=== PATIENT | female | born 1965 | race Caucasian/White ===

== ENCOUNTER → 2017-09-14 | Outpatient (CLI) | payer MEDICARE, MEDICAID | END | disposition home or self-care (01) | LOC: KCIC MRI 13:06 | DX: M47.897 Other spondylosis, lumbosacral region (principal); R60.0 Localized edema | CPT/HCPCS: 72148 ==

== ENCOUNTER → 2017-10-06 | Outpatient (CLI) | payer MEDICARE, MEDICAID ==
[~2017-10-06] MED LIST: IOHEXOL 180 MG/ML 10 ML VIAL.; methylPREDNISolone ACETATE 40 MG/ML VIAL.; methylPREDNISolone ACETATE 80 MG/ML VIAL.
== END | disposition home or self-care (01) ==
LOC: PNCL 09:00
DX: M51.16 Intervertebral disc disorders with radiculopathy, lumbar region (principal); F17.210 Nicotine dependence, cigarettes, uncomplicated; Z87.442 Personal history of urinary calculi; I10 Essential (primary) hypertension; K21.9 Gastro-esophageal reflux disease without esophagitis; Z98.890 Other specified postprocedural states; Z88.8 Allergy status to other drugs, medicaments and biological substances; Z79.899 Other long term (current) drug therapy; Z82.49 Family history of ischemic heart disease and other diseases of the circulatory system
CPT/HCPCS: 62323; J1030; J1040; Q9965

== ENCOUNTER → 2017-10-20 | Outpatient (CLI) | payer MEDICARE, MEDICAID | LOC: PNCL 09:31 | DX: M51.16 Intervertebral disc disorders with radiculopathy, lumbar region (principal) | CPT/HCPCS: 62323; J1030; J1040; Q9965 ==

== ENCOUNTER → 2017-11-03 | Outpatient (CLI) | payer MEDICARE, MEDICAID | LOC: PNCL 09:05 | DX: M51.16 Intervertebral disc disorders with radiculopathy, lumbar region (principal) | CPT/HCPCS: 62323; J1030; J1040; Q9965 ==

== ENCOUNTER → 2018-01-11 | Outpatient (CLI) | payer MEDICARE, MEDICAID | END | disposition home or self-care (01) | LOC: KCIC MAMMO 16:04 | DX: Z12.31 Encounter for screening mammogram for malignant neoplasm of breast (principal); I10 Essential (primary) hypertension; K21.9 Gastro-esophageal reflux disease without esophagitis | CPT/HCPCS: 77063; 77067 ==

== ENCOUNTER → 2019-06-03 | Outpatient (CLI) | payer MEDICARE, MEDICAID ==
[2015-09-19 05:26] VITALS: BP 164/88
[~2019-06-03] MED LIST changes: +BUPR200T2 PO; +DESV100T PO; +GABA-585 PO; -IOHEXOL 180 MG/ML 10 ML VIAL.; +MULT1TAB52 PO; +OXYB5TAB10 PO; +RANI150C PO; +TRIA1CAP3 PO; -methylPREDNISolone ACETATE 40 MG/ML VIAL.; -methylPREDNISolone ACETATE 80 MG/ML VIAL.
--- NOTE | 2019-06-03 17:07 | KCIC ---
MRI of the lumbar spine without contrast 06/03/2019 CLINICAL HISTORY: Low back pain with severe right leg pain. TECHNIQUE: Unenhanced T1-weighted and T2-weighted sagittal and axial and inversion recovery sagittal images of the lumbar spine were obtained. FINDINGS: Comparison study is dated 09/14/2017. Very mild S-shaped curvature of the thoracolumbar spine is seen. Degenerative signal changes are seen involving all of the disks of the lumbar spine. Degenerative signal changes are seen within the marrow surrounding these discs. The conus medullaris is normal morphology, position, and signal characteristics. A septated high signal intensity lesion is seen on the T2-weighted images in the right pelvis which measures at least 7 cm in greatest diameter. It is incompletely evaluated on this study but likely represents a complex ovarian cyst. It does not appear significantly changed since the previous examination. An oval-shaped well-defined heterogeneous mass lesion which appears to be within the thecal sac is seen extending from the L4-5 level inferiorly. This measures 1.8 x 1.5 x 1.1 cm in craniocaudal, transverse and AP dimensions. This was not seen on previous examination. 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 This occupies the majority of the thecal sac extending from L4-5 to the superior L5 level displacing the nerve roots of the cauda equina, laterally and posteriorly. This mass causes severe central spinal canal stenosis. No additional mass lesion is seen. The changes of degenerative disc disease are seen throughout the lumbar spine. These consist of minimal to mild generalized disc bulges, degenerative changes involving the facet joints and mild to moderate ligamentum flavum hypertrophy. These findings do not result in areas of significant central spinal canal or neural foraminal stenosis. IMPRESSION: 1.8 cm oval-shaped mass is seen within the thecal sac at the L4-5 level which occupies the majority of the thecal sac at L4-5 extending inferiorly resulting in severe central spinal canal stenosis. 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 This could be further evaluated with postcontrast MR imaging if clinically warranted. Electronically signed by: Seven Hogan MD (06/03/2019 5:04 PM) [email or web address]
== END | disposition home or self-care (01) ==
LOC: KCIC MRI 14:25
PROVIDERS: ATTEND Family Medicine
DX: M51.16 Intervertebral disc disorders with radiculopathy, lumbar region (principal); R22.2 Localized swelling, mass and lump, trunk
CPT/HCPCS: 72148

== ENCOUNTER → 2019-06-29 | Outpatient (CLI) | payer MEDICARE, MEDICAID ==
[2015-09-19 05:26] VITALS: BP 164/88
[~2019-06-29] MED LIST changes: +FAMO20TA5 PO; +GADOTERATE 7.5 MMOL/15ML VIAL. IVP ONE; +OXYB10TA2 PO
--- NOTE | 2019-06-29 13:57 | RAD ---
MRI of the lumbar spine without and with contrast 06/29/2019 CLINICAL HISTORY: Mass seen within the central spinal canal of the lower lumbar spine on a recent MRI. Postcontrast imaging was recommended for further evaluation. TECHNIQUE: Unenhanced T1-weighted and T2-weighted sagittal and axial and inversion recovery sagittal images of the lumbar spine were obtained. After the intravenous administration of 20 cc of DOTAREM, enhanced T1-weighted sagittal and axial images of the lumbar spine were obtained. FINDINGS: Comparison study is dated 06/03/2019. Very mild S-shaped curvature of the thoracolumbar spine is seen. Degenerative signal changes are seen involving all of the disks of the lumbar spine. Degenerative signal changes are seen within the marrow surrounding these discs. The conus medullaris is normal morphology, position, and signal characteristics. An oval-shaped well-defined mass is seen within the thecal sac at the L4-5 level extending inferiorly. This measures 1.8 x 1.6 x 1.1 cm in craniocaudal, transverse and AP dimensions. This corresponds to the abnormality seen on the patient's recent MRI. It demonstrates enhancement with slightly irregular nonenhancing center. Its MRI appearance is consistent with schwannoma/neurofibroma. No additional area of abnormal contrast enhancement is seen. This mass results in severe central spinal canal stenosis at the L4-5 level extending to the mid L5 level. The changes of degenerative disc disease are again seen throughout the lumbar disc spaces consisting of minimal to mild generalized disc bulges, degenerative changes involving the facet joints and mild to moderate ligament flavum hypertrophy. These findings do not result in additional areas of significant central spinal canal or neural foraminal stenosis. A septated high signal intensity mass is seen on the T2-weighted images within the right pelvis near the posterior midline which is incompletely evaluated on this study. This may represent a complex ovarian cyst. It is unchanged. IMPRESSION: 1.8 cm enhancing intradural, extramedullary oval-shaped mass is seen at L4-5 level extending inferiorly. 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 This results in severe central spinal canal stenosis. No additional area of abnormal contrast enhancement is seen. Electronically signed by: Seven Hogan MD (06/29/2019 1:54 PM) [facility]
== END | disposition home or self-care (01) ==
LOC: MRI 10:09
PROVIDERS: ATTEND Neurological Surgery
DX: M51.36 Other intervertebral disc degeneration, lumbar region (principal); M48.061 Spinal stenosis, lumbar region without neurogenic claudication; G95.89 Other specified diseases of spinal cord; I10 Essential (primary) hypertension; F17.200 Nicotine dependence, unspecified, uncomplicated
CPT/HCPCS: 72158; A9575

== ENCOUNTER → 2019-07-04 | Outpatient (CLI) | payer MEDICARE, MEDICAID ==
[2015-09-19 05:26] VITALS: BP 164/88
[~2019-07-04] MED LIST changes: -GADOTERATE 7.5 MMOL/15ML VIAL. IVP ONE
[2019-07-04 15:35] LABS: BASO # 0.1 x10^3/uL (0.0-0.2); BASO % 1 % (0-3); EOS % 1 % (0-3); HEMATOCRIT 39.4 % (36.0-47.0); HEMOGLOBIN 13.4 g/dL (12.0-15.5); LYMPH # 1.8 x10^3/uL (1.0-4.8); LYMPH % 26 % (24-48); MEAN CORPUSCULAR HEMOGLOBIN 30 pg (25-35); MEAN CORPUSCULAR HGB CONC 34 g/dL (31-37); MEAN CORPUSCULAR VOLUME 88 fL (79-100); MONO # 0.7 x10^3/uL (0.0-1.1); MONO % 11 % (0-9); NEUT # 4.2 x10^3/uL (1.8-7.7); NEUT % 62 % (31-73); PLATELET COUNT 293 x10^3/uL (140-400); RED CELL DISTRIBUTION WIDTH 14.8 % (11.5-14.5); WHITE BLOOD COUNT 6.8 x10^3/uL (4.0-11.0)
--- NOTE | 2019-07-04 15:41 | EKG ---
[facility] [address] [place] [address] Test Date: 2019-07-04 Test Time: 15:23:49 Pat Name: LAUREN FORDE Department: Room: Gender: F Assistant Toddler Teacher: : 1965 Requested By: MILENA PRINGLE Order Number: [id number] Reading MD: Anjel De Measurements Intervals [place] Rate: 75 P: 267 TX: 154 QRS: -11 QRSD: 84 T: 16 QT: 378 QTc: 425 Interpretive Statements SINUS RHYTHM LEFTWARD AXIS MILD NONSPECIFIC ST-T WAVE CHANGES. Electronically Signed On 07-05-2019 13:13:05 [employer] WORK[employer] by Anjel De
[2019-07-04 15:48] LABS: PROTHROMBIN TIME PATIENT 13.2 SEC (11.7-14.0)
[2019-07-04 16:09] LABS: ALBUMIN 3.7 g/dL (3.4-5.0); CALCIUM 9.2 mg/dL (8.5-10.1); CREATININE 0.8 mg/dL (0.6-1.0); GFR 74.5; POTASSIUM 3.8 mmol/L (3.5-5.1); TOTAL BILIRUBIN 0.3 mg/dL (0.2-1.0); TOTAL PROTEIN 7.3 g/dL (6.4-8.2)
== END | disposition home or self-care (01) ==
LOC: SURGPAT 13:42
PROVIDERS: ATTEND Neurological Surgery
DX: Z01.818 Encounter for other preprocedural examination (principal); D36.17 Benign neoplasm of peripheral nerves and autonomic nervous system of trunk, unspecified; Z88.8 Allergy status to other drugs, medicaments and biological substances
CPT/HCPCS: 36415; 80053; 85025; 85610; 85730; 87641; 93005

== ENCOUNTER 2019-07-13 09:27 | Inpatient (IN) | payer MEDICARE, MEDICAID ==
--- NOTE | 2019-07-12 23:21 | HP ---
ADMIT DATE: 07/13/2019. DATE OF SURGERY: 07/13/2019 HISTORY OF PRESENT ILLNESS: The patient is a pleasant 54-year-old who has difficulty with low back pain, left hip and left lateral thigh pain. This started about 1-1/2 years ago. Three months ago, it became severe. She has pain down to her left ankle and she rates it as a 9/10. Her back pain, she rates as a 6/10. Activity increases her pain. She takes Advil and Tylenol. She has had 3 epidural steroid injections without help. When asked about bowel and bladder function, she did report difficulty with urgency of urine. PAST MEDICAL HISTORY: Hypertension, kidney stones and psychiatric care. PAST SURGICAL HISTORY: Kidney stone removal, ectopic , and tubal ligation. FAMILY HISTORY: Cancer and hypertension. SOCIAL HISTORY: She is retired. . Exercises weekly. Denies substance abuse. Current smoker. Drinks 1-2 times per year. Drinks soda. ALLERGIES: ALLERGY TO KEFLEX. CURRENT MEDICATIONS: Bupropion, Pristiq, triamterene/hydrochlorothiazide, oxybutynin, famotidine and a multivitamin. REVIEW OF SYSTEMS: A 12-point review of systems was obtained and is noncontributory except for that mentioned above. PHYSICAL EXAMINATION: NEUROSURGERY EXAMINATION: GENERAL APPEARANCE: Alert, pleasant, no acute distress. HEAD: Normocephalic, atraumatic. SKIN: Warm and dry. MUSCULOSKELETAL: Lumbar paraspinal muscle bulk is normal, restricted range of motion of the lumbar spine, [id number] tenderness of low lumbar spine with palpation, normal range of motion of the lower extremities bilaterally. EXTREMITIES: No clubbing, cyanosis or edema. NEUROLOGIC: Alert and oriented x 3, normal recent and remote memory. Strength 5/5 in bilateral lower extremities, sensory was intact to light touch in bilateral lower extremities, reflexes were present and symmetric in lower extremities bilaterally, negative straight leg raising bilaterally, normal gait. IMAGING: I reviewed a lumbar MRI scan. I reviewed the study with and without contrast. On that study, there is an intradural extramedullary mass at L4-L5, which occupies the majority of the canal. There is also an appearance of neurofibroma, meningioma. ASSESSMENT/ PLAN: She has an intradural mass at L4-L5 with lumbar stenosis. She should undergo a surgery to remove the mass. I did discuss the risks of the operation with her including injury to the nerves, controlling bowel and bladder function. I spoke about the possibility of weakness to her lower extremities. I outlined the surgery in detail as well as the expected post op course. She understands. She would like to go ahead. We will make the arrangements. MILENA PRINGLE MD DR: RUDDY/boni JOB#: [id number] / [id number] YEMI
[~2019-07-13] VITALS: Ht 162.6 cm; Wt 102.5 kg
[~2019-07-13 09:27] MED LIST changes: +BACITRACIN 50,000 UNIT in IV NORMAL SALINE 1000ML BAG 1,000 ML IRR ONE; +BUPIVACAINE-EPI 0.5%-1:200000 MPF 30 ML VIAL. INJ ONE; +GELATIN SPONGE SIZE 100. ONE; +IV RINGERS,LACTATED 1000ML 1,000 ML IV SCH; +KETOROLAC 60 MG/2 ML VIAL. ONE; +LIDOCAINE 1% PF 2 ML VIAL. ID PRN; +ONDANSETRON PF 4 MG/2 ML VIAL. IV PRN; +PROCHLORPERAZINE 10 MG/2 ML VIAL. IV PRN; +THROMBIN TOPICAL 20,000 UNIT SPRAY.SYRN KIT TP ONE; +VANCOMYCIN 1GM IVPB FOR OMNI 250 ML IV PRN; +fentaNYL PF VIAL 100 MCG/2 ML VIAL IV PRN
[2019-07-13] MEDS ORDERED: ROCURONIUM 50 MG/5 ML VIAL. ONE (10:45)
[2019-07-13] MEDS ORDERED: PROPOFOL 20 ML IV ONE ×2 (10:45→18:47)
[2019-07-13] MEDS ORDERED: PROPOFOL 50 ML IV ONE ×3 (10:45→15:44)
[2019-07-13] MEDS ORDERED: ONDANSETRON PF 4 MG/2 ML VIAL. ONE (10:45)
[2019-07-13] MEDS ORDERED: DEXAMETHASONE SOD PHOS 20 MG/5 ML VIAL. ONE (10:45)
[2019-07-13] MEDS ORDERED: REMIFENTANIL 2 MG VIAL. IV ONE (10:45)
[2019-07-13] MEDS ORDERED: PHENYLEPHRINE 10 MG/ML VIAL. ONE (10:45)
[2019-07-13] MEDS ORDERED: LIDOCAINE 2% PF 5 ML VIAL. ONE (10:45)
[2019-07-13] MEDS ORDERED: DESFLURANE > 120 MINUTES IH ONE (10:58)
[2019-07-13] MEDS ORDERED: MINERAL OIL/PETROLATUM,WHITE OPHTH OINT 3.5GM TUBE. ONE (10:58)
[2019-07-13] MEDS ORDERED: REMIFENTANIL 1 MG VIAL. IV ONE ×2 (16:02→17:30)
--- NOTE | 2019-07-13 16:21 | RAD ---
CT LUMBAR SPINE WO CONTRAST History: Nerve sheath tumor. Neurofibroma. Technique: Noncontrast CT was performed of the lumbar spine. Multiplanar reconstructions were performed. Exposure: One or more of the following individualized dose reduction techniques were utilized for this examination: 1. Automated exposure control 2. Adjustment of the mA and/or kV according to patient size 3. Use of iterative reconstruction technique. Comparison: June 29, 2019 MRI Findings: No intradural mass at the L4-L5 level, characterized on CT without contrast. Normal vertebral body height. No fracture. Multilevel degenerative disc changes most prominent L4-L5 and L5-S1. Moderate lower lumbar facet arthropathy. No findings to neuroforaminal narrowing, unchanged. Multiloculated right adnexal cystic lesion with septations measures approximately 7.4 x 6.7 cm partially imaged. Impression: 1. Known L4-L5 intrathecal mass not well characterized on noncontrast CT. 2. Multilevel lumbar spondylosis. 3. Multiloculated septated right adnexal cyst partially imaged, likely ovarian. Recommend ultrasound to further evaluate. Electronically signed by: Clarke Suarez DO (07/13/2019 4:18 PM) [id number]
[2019-07-13] MEDS ORDERED: ESMOLOL 100 MG/10 ML VIAL. IVP ONE (16:38)
[2019-07-13] MEDS ORDERED: fentaNYL PF VIAL 100 MCG/2 ML VIAL ONE ×2 (16:44→19:34)
[2019-07-13] MEDS ORDERED: NEOSTIGMINE METHYLSULFATE 5 MG/5 ML SYRINGE. ONE (18:36)
[2019-07-13] MEDS ORDERED: GLYCOPYRROLATE 1 MG/5 ML VIAL. ONE (18:36)
[2019-07-13] MEDS: MORPHINE SULFATE 2 MG/ML VIAL. IV PRN ×2 (19:59→20:01)
[2019-07-13] MEDS: HYDROmorphone 2 MG/ML VIAL IV PRN ×4 (20:11→20:36)
[2019-07-13] MEDS ORDERED: CALCIUM CARBONATE 500 MG TAB.CHEW PO PRN (20:30)
[2019-07-13] MEDS ORDERED: MAGNESIUM HYDROXIDE 2,400 MG/30 ML ORAL.SUSP. PO PRN (20:30)
[2019-07-13] MEDS ORDERED: MAG HYDROX/ALUMINUM HYD/SIMETH 30 ML ORAL.SUSP PO PRN (20:30)
[2019-07-13] MEDS ORDERED: ONDANSETRON PF 4 MG/2 ML VIAL. IVP PRN (20:30)
[2019-07-13] MEDS ORDERED: 0.9 % SODIUM CHLORIDE 10 ML DISP.SYRIN. IV PRN (20:30)
[2019-07-13] MEDS ORDERED: NALOXONE 0.4 MG/ML VIAL. IV PRN (20:30)
[2019-07-13] MEDS ORDERED: diphenhydrAMINE HCL 25 MG CAPSULE PO PRN (20:30)
[2019-07-13] MEDS ORDERED: ACETAMINOPHEN 325 MG TABLET. PO PRN (20:30)
[2019-07-13] MEDS ORDERED: ZOLPIDEM 5 MG TABLET. PO PRN (20:30)
[2019-07-13 20:45] VITALS: BP 135/89
--- NOTE | 2019-07-13 20:45 | NUR ---
Admit from PACU. Family at bedside. Call light in reach C/o weakness of left leg w/ numbness of left foot. Dressing to lower back has small amount bloody drainage. TYLER present w/ sanguinous drainage. Reporting back pain 2/10. Has reddened stripe across her chest which is also painful. Ice packs placed to both areas.
[2019-07-13 21:00] VITALS: BP 138/92
[2019-07-13] MEDS ORDERED: buPROPion SR 100 MG TABLET.SA. PO SCH (22:00)
[2019-07-13 23:11] VITALS: BP 139/87
[2019-07-13] MEDS: POTASSIUM CL 20MEQ D5-0.45NACL 1,000 ML IV SCH (23:22)
[2019-07-13] MEDS: fentaNYL PF VIAL 100 MCG/2 ML VIAL IVP PRN (23:46)
[2019-07-14] MEDS: FAMOTIDINE 20 MG TABLET. PO SCH ×3 (00:28→17:23)
[2019-07-14] MEDS: METHOCARBAMOL 750 MG TABLET PO PRN ×3 (01:23→21:16)
[2019-07-14] MEDS: fentaNYL PF VIAL 100 MCG/2 ML VIAL IVP PRN ×2 (04:59→12:35)
[2019-07-14 06:17] VITALS: BP 118/78
[2019-07-14] MEDS: oxyCODONE/APAP 5/325 1 TAB TABLET PO PRN ×4 (07:06→21:17)
[2019-07-14] MEDS: DESVENLAFAXINE 25 MG TAB.ER.24H PO SCH (08:32)
[2019-07-14] MEDS: buPROPion SR 100 MG TABLET.SA. PO SCH ×2 (08:32→14:50)
[2019-07-14] MEDS: MULTIVITAMIN with MINERAL TABLET. PO SCH (08:33)
[2019-07-14] MEDS: DOCUSATE SODIUM 100 MG CAPSULE. PO SCH ×2 (08:33→21:16)
[2019-07-14 08:35] VITALS: BP 97/56
--- NOTE | 2019-07-14 08:55 | NUR ---
restless prior to repositioning and was rating her pain a "6". she was medicated with Percocet/crackers. repositioned onto her left side. dressing has small amount of sanguinous drainage; kin drain intact and patent. incisional area trace edema. she is reporting left foot numbness. she is unable to extend or flex foot/toes. she has sensation midcalf and good calf strength. right leg/foot unaffected. iv fluids continue. she is drinking fluids well. Moore to dependent drainage and patent with mar urine. tolerated breakfast. denies headache. blood medication held related to being 100/57. will continue to monitor. Addendum: 07/14/19 at 0904 by LAURA PAEZ RN blood pressure was 97/56
[2019-07-14] MEDS ORDERED: OXYBUTYNIN CHLORIDE 5 MG TABLET PO SCH (09:00)
[2019-07-14] MEDS ORDERED: FAMOTIDINE 20 MG TABLET. PO SCH (09:00)
[2019-07-14] MEDS: TRIAMTERENE/HCTZ 37.5/25MG TABLET. PO SCH (09:00)
[2019-07-14 10:35] VITALS: BP 117/65
[2019-07-14] MEDS: POTASSIUM CL 20MEQ D5-0.45NACL 1,000 ML IV SCH ×2 (12:29→22:55)
[2019-07-14] MEDS ORDERED: DEXAMETHASONE SOD PHOS 20 MG/5 ML VIAL. IV ONE (12:30)
[2019-07-14 15:00] VITALS: BP 124/81
--- NOTE | 2019-07-14 16:07 | PDOC ---
PROGRESS NOTES Subjective Subjective POD #1 laminectomy and removal of intradural mass L4-5 some incision pain, controlled with medication numbness in left foot Objective Objective Vital Signs Date Time Temp Pulse Resp B/P (MAP) Pulse Ox O2 Delivery O2 Flow Rate FiO2 07/14/19 13:00 14 07/14/19 10:35 98.0 84 117/65 (82) 93 Room Air 98.0 07/13/19 23:46 3.0 Intake and Output 07/14/19 07:00 Intake Total 3182 ml Output Total 1875 ml Balance 1307 ml Intake Oral 510 ml IV Total 2250 ml Blood Product IV Normal Saline Flush 422 ml Output Urine Total 1725 ml Drainage Total 50 ml Estimated Blood Loss 100 ml Physical Exam General: Alert, Oriented X3, Cooperative, No acute distress MUSCULOSKELETAL: Other (DANG) Neuro: Other (strength 5/5 except 4/5 left dorsiflexion) Skin: Other (dressing dry and intact, drain removed) Plan Plan of Care drain removed steroids slowly elevate HOB as tolerated remove garcia in AM Comment Review of Relevant I have reviewed the following items priti (where applicable) has been applied. Medications Current Medications Ondansetron HCl (Zofran) 4 mg PRN Q6HRS PRN IV NAUSEA/VOMITING; Start 07/13/19 at 07:00; Stop 07/14/19 at 06:59; Status DC Fentanyl Citrate (Fentanyl 2ml Vial) 25 mcg PRN Q5MIN PRN IV MILD PAIN 1-3; Start 07/13/19 at 07:00; Stop 07/14/19 at 06:59; Status DC Fentanyl Citrate (Fentanyl 2ml Vial) 50 mcg PRN Q5MIN PRN IV MODERATE TO SEVERE PAIN; Start 07/13/19 at 07:00; Stop 07/14/19 at 06:59; Status DC Morphine Sulfate (Morphine Sulfate) 1 mg PRN Q10MIN PRN IV SEVERE PAIN 7-10 Last administered on 07/13/19at 20:01; Start 07/13/19 at 07:00; Stop 07/14/19 at 06:59; Status DC Ringer's Solution 1,000 ml @ 30 mls/hr Q24H IV Last administered on 07/13/19at 07:00; Start 07/13/19 at 07:00; Stop 07/13/19 at 18:59; Status DC Lidocaine HCl (Xylocaine-Mpf 1% 2ml Vial) 2 ml PRN 1X PRN ID PRIOR TO IV START; Start 07/13/19 at 07:00; Stop 07/14/19 at 06:59; Status DC Hydromorphone HCl (Dilaudid) 0.5 mg PRN Q10MIN PRN IV SEV PAIN, Second choice Last administered on 07/13/19at 20:36; Start 07/13/19 at 07:00; Stop 07/14/19 at 06:59; Status DC Prochlorperazine Edisylate (Compazine) 5 mg PACU PRN PRN IV NAUSEA, MRX1; Start 07/13/19 at 07:00; Stop 07/14/19 at 06:59; Status DC Vancomycin HCl 250 ml @ 250 mls/hr 1X PREOP PRN IV PRIOR TO PROCEDURE Last administered on 07/13/19at 12:56; Start 07/13/19 at 06:00; Stop 07/13/19 at 18:00; Status DC Bacitracin 06895 unit/Sodium Chloride 1,000 ml @ 1,000 mls/hr 1X ONCE IRR Last administered on 07/13/19 13:55; Start 07/13/19 at 06:00; Stop 07/13/19 at 06:59; Status DC Bupivacaine HCl/ Epinephrine Bitart (Sensorcain-Epi 0.5%-1:787316 Mpf) 30 ml 1X ONCE INJ Last administered on 07/13/19at 13:55; Start 07/13/19 at 06:00; Stop 07/13/19 at 06:01; Status DC Gelatin (Gelfoam Size 100) 1 each STK-MED ONCE .ROUTE Last administered on 07/13/19at 13:55; Start 07/13/19 at 08:00; Stop 07/13/19 at 08:01; Status DC Ketorolac Tromethamine (Toradol Im) 60 mg STK-MED ONCE .ROUTE Last administered on 07/13/19 13:55; Start 07/13/19 at 08:00; Stop 07/13/19 at 08:01; Status DC Thrombin 20,000 unit STK-MED ONCE TP Last administered on 07/13/19at 13:55; Start 07/13/19 at 08:00; Stop 07/13/19 at 08:01; Status DC Propofol 20 ml @ As Directed STK-MED ONCE IV ; Start 07/13/19 at 10:45; Stop 07/13/19 at 10:45; Status DC Dexamethasone Sodium Phosphate (Decadron) 20 mg STK-MED ONCE .ROUTE ; Start 07/13/19 at 10:45; Stop 07/13/19 at 10:45; Status DC Lidocaine HCl (Lidocaine Pf 2% Vial) 5 ml STK-MED ONCE .ROUTE ; Start 07/13/19 at 10:45; Stop 07/13/19 at 10:45; Status DC Ondansetron HCl (Zofran) 4 mg STK-MED ONCE .ROUTE ; Start 07/13/19 at 10:45; Stop 07/13/19 at 10:45; Status DC Phenylephrine HCl (Braydon-Synephrine Inj) 10 mg STK-MED ONCE .ROUTE ; Start 07/13/19 at 10:45; Stop 07/13/19 at 10:45; Status DC Propofol 50 ml @ As Directed STK-MED ONCE IV ; Start 07/13/19 at 10:45; Stop 07/13/19 at 10:45; Status DC Rocuronium [place] (Zemuron) 50 mg STK-MED ONCE .ROUTE ; Start 07/13/19 at 10:45; Stop 07/13/19 at 10:45; Status DC Remifentanil HCl (Ultiva) 2 mg STK-MED ONCE IV ; Start 07/13/19 at 10:45; Stop 07/13/19 at 10:45; Status DC Multi-Ingred Cream/Lotion/Oil/ Oint (Artificial Tears Eye Ointment) 7 wiley STK- MED ONCE .ROUTE ; Start 07/13/19 at 10:58; Stop 07/13/19 at 10:58; Status DC Desflurane (Suprane) 90 ml STK-MED ONCE IH ; Start 07/13/19 at 10:58; Stop 07/13/19 at 10:59; Status DC Propofol 50 ml @ As Directed STK-MED ONCE IV ; Start 07/13/19 at 14:18; Stop 07/13/19 at 14:18; Status DC Propofol 50 ml @ As Directed STK-MED ONCE IV ; Start 07/13/19 at 15:44; Stop 07/13/19 at 15:44; Status DC Remifentanil HCl (Ultiva) 1 mg STK-MED ONCE IV ; Start 07/13/19 at 16:02; Stop 07/13/19 at 16:02; Status DC Esmolol HCl (Brevibloc) 100 mg STK-MED ONCE IVP ; Start 07/13/19 at 16:38; Stop 07/13/19 at 16:38; Status DC Fentanyl Citrate (Fentanyl 2ml Vial) 100 mcg STK-MED ONCE .ROUTE ; Start 07/13/19 at 16:44; Stop 07/13/19 at 16:45; Status DC Remifentanil HCl (Ultiva) 1 mg STK-MED ONCE IV ; Start 07/13/19 at 17:30; Stop 07/13/19 at 17:30; Status DC Neostigmine Methylsulfate (Neostigmine Methylsulfate) 5 mg STK-MED ONCE .ROUTE ; Start 07/13/19 at 18:36; Stop 07/13/19 at 18:36; Status DC Glycopyrrolate (Robinul) 1 mg STK-MED ONCE .ROUTE ; Start 07/13/19 at 18:36; Stop 07/13/19 at 18:36; Status DC Propofol 20 ml @ As Directed STK-MED ONCE IV ; Start 07/13/19 at 18:47; Stop 07/13/19 at 18:47; Status DC Fentanyl Citrate (Fentanyl 2ml Vial) 100 mcg STK-MED ONCE .ROUTE ; Start 07/13/19 at 19:34; Stop 07/13/19 at 19:34; Status DC Famotidine (Pepcid) 20 mg DAILY PO ; Start 07/14/19 at 09:00; Stop 07/14/19 at 00:12; Status DC Bupropion HCl (Wellbutrin Sr) 200 mg BID PO Last administered on 07/13/19at 23:54; Start 07/13/19 at 22:00; Stop 07/14/19 at 00:12; Status DC Desvenlafaxine Succinate (Pristiq Er) 100 mg DAILY PO Last administered on 07/14/19at 08:32; Start 07/14/19 at 09:00 Multivitamins (Thera M Plus) 1 tab DAILY PO Last administered on 07/14/19at 08:33; Start 07/14/19 at 09:00 Oxybutynin Chloride (Ditropan) 5 mg BID PO ; Start 07/14/19 at 09:00; Stop 07/14/19 at 00:12; Status DC Triamterene/HCTZ (Maxzide 37.5/ 25mg) 1 tab DAILY PO ; Start 07/14/19 at 09:00 Fentanyl Citrate (Fentanyl 2ml Vial) 50 mcg PRN Q2HR PRN IVP PAIN Last admi nistered on 07/14/19at 12:35; Start 07/13/19 at 20:30 Acetaminophen (Tylenol) 650 mg PRN Q6HRS PRN PO MILD PAIN / TEMP; Start 07/13/19 at 20:30 Al Hydroxide/Mg Hydroxide (Mylanta Plus Xs) 30 ml PRN Q3HRS PRN PO HEARTBURN / GAS; Start 07/13/19 at 20:30 Calcium Carbonate/ Glycine (Tums) 500 mg PRN Q3HRS PRN PO INDIGESTION Last administered on 07/14/19at 00:03; Start 07/13/19 at 20:30 Diphenhydramine HCl (Benadryl) 25 mg PRN Q6HRS PRN PO ITCHING; Start 07/13/19 at 20:30 Zolpidem Tartrate (Ambien) 5 mg PRN QHS PRN PO INSOMNIA, MAY REPEAT IN 1HR; Start 07/13/19 at 20:30 Naloxone HCl (Narcan) 0.1 mg PRN Q2MIN PRN IV ADMIN; Start 07/13/19 at 20:30 Sodium Chloride (Normal Saline Flush) 3 ml QSHIFT PRN IV AFTER MEDS AND BLOOD DRAWS; Start 07/13/19 at 20:30 Potassium Chloride/Dextrose/ Sod Cl 1,000 ml @ 75 mls/hr [id number] IV Last administered on 07/14/19at 12:29; Start 07/13/19 at 22:00 Oxycodone/ Acetaminophen (Percocet 5/325) 1 tab PRN Q4HRS PRN PO MILD PAIN, 1ST CHOICE Last administered on 07/14/19at 10:00; Start 07/13/19 at 20:30 Oxycodone/ Acetaminophen (Percocet 5/325) 2 tab PRN Q4HRS PRN PO MODERATE PAIN, SEVERE PAIN; Start 07/13/19 at 20:30 Methocarbamol (Robaxin) 750 mg PRN TID PRN PO MUSCLE SPASMS Last administered on 07/14/19at 14:49; Start 07/13/19 at 20:30 Docusate Sodium (Colace) 100 mg BID PO Last administered on 07/14/19at 08:33; Start 07/14/19 at 09:00 Magnesium Hydroxide (Milk Of Magnesia) 2,400 mg PRN Q12HR PRN PO CONSTIPATION; Start 07/13/19 at 20:30 Ondansetron HCl (Zofran) 4 mg PRN Q6HRS PRN IVP NAUESA, 1ST CHOICE; Start 07/13/19 at 20:30 Bupropion HCl (Wellbutrin Sr) 200 mg [id number] PO Last administered on 07/14/19at 14:50; Start 07/14/19 at 09:00 Famotidine (Pepcid) 20 mg [id number] PO Last administered on 07/14/19at 07:05; Start 07/14/19 at 01:00 Oxybutynin Chloride (Ditropan) 5 mg HS PO ; Start 07/14/19 at 21:00 Dexamethasone Sodium Phosphate (Decadron) 10 mg 1X ONCE IV Last administered on 07/14/19at 12:27; Start 07/14/19 at 12:30; Stop 07/14/19 at 12:31; Status DC Dexamethasone Sodium Phosphate (Decadron) 4 mg Q6HRS IVP ; Start 07/14/19 at 18:00 Active Scripts Active Reported Famotidine 20 Mg Tablet 20 Mg PO HS Oxybutynin Chloride Er (Oxybutynin Chloride) 10 Mg Tab.er.24 10 Mg PO DAILY Multivitamins (Multivitamin) 1 Each Tablet 1 Tab PO DAILY Triamterene-Hctz 37.5-25 Mg Cp (Triamterene/Hydrochlorothiazid) 1 Each Capsule 1 Cap PO DAILY Wellbutrin Sr (Bupropion Hcl) 200 Mg Tablet.er 1 Tab PO BID Pristiq Er (Desvenlafaxine Succinate) 100 Mg Tab.er.24h 1 Tab PO DAILY Vitals/I & O Vital Sign - Last 24 Hours 12/18/19 12/18/19 12/18/19 12/18/19 19:36 19:36 19:50 19:59 Temp 99.3 99.3 Pulse 103 98 Resp 20 20 20 B/P (MAP) 154/72 142/84 Pulse Ox 99 100 99 O2 Delivery Simple Mask Mask Simple Mask Simple Mask O2 Flow Rate 10 10 10 10.0 07/13/19 07/13/19 07/13/19 07/13/19 20:01 20:05 20:11 20:20 Pulse 95 93 Resp 20 20 20 18 B/P (MAP) 158/90 164/78 Pulse Ox 99 96 99 96 O2 Delivery Simple Mask Room Air Simple Mask Room Air O2 Flow Rate 10.0 10.0 07/13/19 07/13/19 07/13/19 07/13/19 20:23 20:29 20:33 20:36 Resp 18 20 18 Pulse Ox 99 99 94 O2 Delivery Room Air Room Air Room Air Room Air 07/13/19 07/13/19 07/13/19 07/13/19 20:45 20:45 21:00 22:00 Temp 97.7 97.7 Pulse 103 95 102 Resp 22 16 B/P (MAP) 135/89 (104) 138/92 (107) Pulse Ox 93 95 96 O2 Delivery Nasal Cannula Nasal Cannula O2 Flow Rate 3.0 3.0 3.0 3.0 07/13/19 07/13/19 07/14/19 07/14/19 23:11 23:46 00:20 03:00 Pulse 88 Resp 16 22 20 16 B/P (MAP) 139/87 (104) Pulse Ox 98 O2 Delivery Nasal Cannula Nasal Cannula O2 Flow Rate 3.0 3.0 07/14/19 07/14/19 07/14/19 07/14/19 04:59 05:27 06:17 07:06 Temp 98.2 98.2 Pulse 81 Resp 16 16 16 20 B/P (MAP) 118/78 (91) Pulse Ox 95 95 94 O2 Delivery Room Air Room Air Room Air 07/14/19 07/14/19 07/14/19 07/14/19 07:31 08:35 10:00 10:35 Temp 98.0 98.0 Pulse 84 84 Resp 18 16 16 B/P (MAP) 97/56 (70) 117/65 (82) Pulse Ox 93 O2 Delivery Room Air Room Air Room Air 07/14/19 07/14/19 07/14/19 11:00 12:35 13:00 Resp 16 16 14 Intake and Output 07/13/19 07/13/19 07/14/19 15:00 23:00 07:00 Intake Total 2280 ml 902 ml Output Total 850 ml 1025 ml Balance 1430 ml -123 ml MILENA PRINGLE MD Jul 14, 2019 16:07
[2019-07-14 16:11] VITALS: BP 133/81
--- NOTE | 2019-07-14 16:24 | NUR ---
Temitope and Dr. Jeffrey here. drain removed and original surgical dressing. to remain on bedrest with small increments of hob elevation. denies headache at 30 degrees and blood pressure is 133/81 -hr 96. visits with friend. Addendum: 07/14/19 at 1630 by LAURA PAEZ RN does have some motion in her left great toe. and 4and 5th toe. strength left < right. pulses equal and strong. sensation less in left sole.
[2019-07-14] MEDS: DEXAMETHASONE SOD PHOS 4 MG/ML VIAL IVP SCH ×2 (17:23→23:49)
[2019-07-14 18:27] VITALS: BP 123/74
--- NOTE | 2019-07-14 18:30 | NUR ---
Daina has had a fair day. states that she thinks the feeling is coming back somewhat--feel at the bottom of left foot sole. motion minimally better. she tolerate up to 40 degrees for mealtime. denies headache, blood pressure remain stable. no nausea. seems in better spirits this evening related to visitors. Moore patent with large amount of yellow drainage. pain has ranged from a 3 to7. medicated with fentanyl x1 and Percocet 2 tabs. x2
[2019-07-14] MEDS: OXYBUTYNIN CHLORIDE 5 MG TABLET PO SCH (21:16)
[2019-07-15 05:57] VITALS: BP 130/66
[2019-07-15] MEDS: DEXAMETHASONE SOD PHOS 4 MG/ML VIAL IVP SCH (06:22)
[2019-07-15] MEDS: FAMOTIDINE 20 MG TABLET. PO SCH ×2 (06:22→18:05)
--- NOTE | 2019-07-15 06:38 | NUR ---
Denies pain. No significant change re: left foot movement. Has not been OOB since admission. States she has "no idea if I can walk on it or not." Dressing has shadow drainage. Patient afebrile but feels warm. IVF infusing, Moore patent.
[2019-07-15] MEDS: buPROPion SR 100 MG TABLET.SA. PO SCH ×2 (08:43→13:51)
[2019-07-15] MEDS: TRIAMTERENE/HCTZ 37.5/25MG TABLET. PO SCH (08:43)
[2019-07-15] MEDS: DOCUSATE SODIUM 100 MG CAPSULE. PO SCH ×2 (08:43→21:24)
[2019-07-15] MEDS: MULTIVITAMIN with MINERAL TABLET. PO SCH (08:43)
[2019-07-15] MEDS: DESVENLAFAXINE 25 MG TAB.ER.24H PO SCH (08:49)
[2019-07-15] MEDS: oxyCODONE/APAP 5/325 1 TAB TABLET PO PRN ×2 (08:58→21:24)
--- NOTE | 2019-07-15 10:00 | NUR ---
UP WITH ASSIST X'S 2. GAIT UNSTEADY, LEFT FOOT DRAGS ON AMBULATION. UP TO CHAIR. INSTRUCTED PT NOT TO GET UP WITHOUT ASSISTANCE. WILL USE WALKER NEXT TIME PT GETS UP. CONT. MONITOR.
[2019-07-15] MEDS: fentaNYL PF VIAL 100 MCG/2 ML VIAL IVP PRN (10:04)
[2019-07-15 10:55] VITALS: BP 120/67
--- NOTE | 2019-07-15 12:15 | PDOC ---
PROGRESS NOTES Subjective Subjective patient seen at 0940 just out of bed into chair incisional pain with getting up garcia out Objective Objective Vital Signs Date Time Temp Pulse Resp B/P (MAP) Pulse Ox O2 Delivery O2 Flow Rate FiO2 07/15/19 10:55 98.6 88 16 120/67 (84) 91 Room Air 98.6 07/13/19 23:46 3.0 Intake and Output 07/15/19 07:00 Intake Total 4000 ml Output Total 3285 ml Balance 715 ml Intake Oral 2230 ml IV Total 925 ml Blood Product IV Normal Saline Flush 845 ml Output Urine Total 3225 ml Drainage Total 60 ml Physical Exam General: Alert, Oriented X3, Cooperative MUSCULOSKELETAL: Other (DANG) Neuro: Normal speech, Other (strength 5/5 in BLE except 4/5 left dorsiflexion) Skin: Other (dressing with minimal bloody drainage, changed) Plan Plan of Care slowly increase activity as tolerated PT AFO Comment Review of Relevant I have reviewed the following items priti (where applicable) has been applied. Medications Current Medications Ondansetron HCl (Zofran) 4 mg PRN Q6HRS PRN IV NAUSEA/VOMITING; Start 07/13/19 at 07:00; Stop 07/14/19 at 06:59; Status DC Fentanyl Citrate (Fentanyl 2ml Vial) 25 mcg PRN Q5MIN PRN IV MILD PAIN 1-3; Start 07/13/19 at 07:00; Stop 07/14/19 at 06:59; Status DC Fentanyl Citrate (Fentanyl 2ml Vial) 50 mcg PRN Q5MIN PRN IV MODERATE TO SEVERE PAIN; Start 07/13/19 at 07:00; Stop 07/14/19 at 06:59; Status DC Morphine Sulfate (Morphine Sulfate) 1 mg PRN Q10MIN PRN IV SEVERE PAIN 7-10 Last administered on 07/13/19at 20:01; Start 07/13/19 at 07:00; Stop 07/14/19 at 06:59; Status DC Ringer's Solution 1,000 ml @ 30 mls/hr Q24H IV Last administered on 07/13/19at 07:00; Start 07/13/19 at 07:00; Stop 07/13/19 at 18:59; Status DC Lidocaine HCl (Xylocaine-Mpf 1% 2ml Vial) 2 ml PRN 1X PRN ID PRIOR TO IV START; Start 07/13/19 at 07:00; Stop 07/14/19 at 06:59; Status DC Hydromorphone HCl (Dilaudid) 0.5 mg PRN Q10MIN PRN IV SEV PAIN, Second choice Last administered on 07/13/19at 20:36; Start 07/13/19 at 07:00; Stop 07/14/19 at 06:59; Status DC Prochlorperazine Edisylate (Compazine) 5 mg PACU PRN PRN IV NAUSEA, MRX1; Start 07/13/19 at 07:00; Stop 07/14/19 at 06:59; Status DC Vancomycin HCl 250 ml @ 250 mls/hr 1X PREOP PRN IV PRIOR TO PROCEDURE Last administered on 07/13/19 12:56; Start 07/13/19 at 06:00; Stop 07/13/19 at 18:00; Status DC Bacitracin 09181 unit/Sodium Chloride 1,000 ml @ 1,000 mls/hr 1X ONCE IRR Last administered on 07/13/19 13:55; Start 07/13/19 at 06:00; Stop 07/13/19 at 06:59; Status DC Bupivacaine HCl/ Epinephrine Bitart (Sensorcain-Epi 0.5%-1:866165 Mpf) 30 ml 1X ONCE INJ Last administered on 07/13/19 13:55; Start 07/13/19 at 06:00; Stop 07/13/19 at 06:01; Status DC Gelatin (Gelfoam Size 100) 1 each STK-MED ONCE .ROUTE Last administered on 07/13/19 13:55; Start 07/13/19 at 08:00; Stop 07/13/19 at 08:01; Status DC Ketorolac Tromethamine (Toradol Im) 60 mg STK-MED ONCE .ROUTE Last administered on 07/13/19 13:55; Start 07/13/19 at 08:00; Stop 07/13/19 at 08:01; Status DC Thrombin 20,000 unit STK-MED ONCE TP Last administered on 07/13/19at 13:55; Start 07/13/19 at 08:00; Stop 07/13/19 at 08:01; Status DC Propofol 20 ml @ As Directed STK-MED ONCE IV ; Start 07/13/19 at 10:45; Stop 07/13/19 at 10:45; Status DC Dexamethasone Sodium Phosphate (Decadron) 20 mg STK-MED ONCE .ROUTE ; Start 07/13/19 at 10:45; Stop 07/13/19 at 10:45; Status DC Lidocaine HCl (Lidocaine Pf 2% Vial) 5 ml STK-MED ONCE .ROUTE ; Start 07/13/19 at 10:45; Stop 07/13/19 at 10:45; Status DC Ondansetron HCl (Zofran) 4 mg STK-MED ONCE .ROUTE ; Start 07/13/19 at 10:45; Stop 07/13/19 at 10:45; Status DC Phenylephrine HCl (Braydon-Synephrine Inj) 10 mg STK-MED ONCE .ROUTE ; Start 07/13/19 at 10:45; Stop 07/13/19 at 10:45; Status DC Propofol 50 ml @ As Directed STK-MED ONCE IV ; Start 07/13/19 at 10:45; Stop 07/13/19 at 10:45; Status DC Rocuronium [place] (Zemuron) 50 mg STK-MED ONCE .ROUTE ; Start 07/13/19 at 10:45; Stop 07/13/19 at 10:45; Status DC Remifentanil HCl (Ultiva) 2 mg STK-MED ONCE IV ; Start 07/13/19 at 10:45; Stop 07/13/19 at 10:45; Status DC Multi-Ingred Cream/Lotion/Oil/ Oint (Artificial Tears Eye Ointment) 7 wiley STK- MED ONCE .ROUTE ; Start 07/13/19 at 10:58; Stop 07/13/19 at 10:58; Status DC Desflurane (Suprane) 90 ml STK-MED ONCE IH ; Start 07/13/19 at 10:58; Stop 07/13/19 at 10:59; Status DC Propofol 50 ml @ As Directed STK-MED ONCE IV ; Start 07/13/19 at 14:18; Stop 07/13/19 at 14:18; Status DC Propofol 50 ml @ As Directed STK-MED ONCE IV ; Start 07/13/19 at 15:44; Stop 07/13/19 at 15:44; Status DC Remifentanil HCl (Ultiva) 1 mg STK-MED ONCE IV ; Start 07/13/19 at 16:02; Stop 07/13/19 at 16:02; Status DC Esmolol HCl (Brevibloc) 100 mg STK-MED ONCE IVP ; Start 07/13/19 at 16:38; Stop 07/13/19 at 16:38; Status DC Fentanyl Citrate (Fentanyl 2ml Vial) 100 mcg STK-MED ONCE .ROUTE ; Start 07/13/19 at 16:44; Stop 07/13/19 at 16:45; Status DC Remifentanil HCl (Ultiva) 1 mg STK-MED ONCE IV ; Start 07/13/19 at 17:30; Stop 07/13/19 at 17:30; Status DC Neostigmine Methylsulfate (Neostigmine Methylsulfate) 5 mg STK-MED ONCE .ROUTE ; Start 07/13/19 at 18:36; Stop 07/13/19 at 18:36; Status DC Glycopyrrolate (Robinul) 1 mg STK-MED ONCE .ROUTE ; Start 07/13/19 at 18:36; Stop 07/13/19 at 18:36; Status DC Propofol 20 ml @ As Directed STK-MED ONCE IV ; Start 07/13/19 at 18:47; Stop 07/13/19 at 18:47; Status DC Fentanyl Citrate (Fentanyl 2ml Vial) 100 mcg STK-MED ONCE .ROUTE ; Start 07/13 at 19:34; Stop 07/13/19 at 19:34; Status DC Famotidine (Pepcid) 20 mg DAILY PO ; Start 07/14/19 at 09:00; Stop 07/14/19 at 00:12; Status DC Bupropion HCl (Wellbutrin Sr) 200 mg BID PO Last administered on 07/13/19at 23:54; Start 07/13/19 at 22:00; Stop 07/14/19 at 00:12; Status DC Desvenlafaxine Succinate (Pristiq Er) 100 mg DAILY PO Last administered on 07/15/19at 08:49; Start 07/14/19 at 09:00 Multivitamins (Thera M Plus) 1 tab DAILY PO Last administered on 07/15/19at 08:43; Start 07/14/19 at 09:00 Oxybutynin Chloride (Ditropan) 5 mg BID PO ; Start 07/14/19 at 09:00; Stop 07/14/19 at 00:12; Status DC Triamterene/HCTZ (Maxzide 37.5/ 25mg) 1 tab DAILY PO Last administered on 07/15/19at 08:43; Start 07/14/19 at 09:00 Fentanyl Citrate (Fentanyl 2ml Vial) 50 mcg PRN Q2HR PRN IVP PAIN Last administered on 07/15/19at 10:04; Start 07/13/19 at 20:30 Acetaminophen (Tylenol) 650 mg PRN Q6HRS PRN PO MILD PAIN / TEMP; Start 07/13/19 at 20:30 Al Hydroxide/Mg Hydroxide (Mylanta Plus Xs) 30 ml PRN Q3HRS PRN PO HEARTBURN / GAS; Start 07/13/19 at 20:30 Calcium Carbonate/ Glycine (Tums) 500 mg PRN Q3HRS PRN PO INDIGESTION Last administered on 07/14/19at 00:03; Start 07/13/19 at 20:30 Diphenhydramine HCl (Benadryl) 25 mg PRN Q6HRS PRN PO ITCHING; Start 07/13/19 at 20:30 Zolpidem Tartrate (Ambien) 5 mg PRN QHS PRN PO INSOMNIA, MAY REPEAT IN 1HR; Start 07/13/19 at 20:30 Naloxone HCl (Narcan) 0.1 mg PRN Q2MIN PRN IV ADMIN; Start 07/13/19 at 20:30 Sodium Chloride (Normal Saline Flush) 3 ml QSHIFT PRN IV AFTER MEDS AND BLOOD DRAWS; Start 07/13/19 at 20:30 Potassium Chloride/Dextrose/ Sod Cl 1,000 ml @ 75 mls/hr [id number] IV Last administered on 07/14/19at 22:55; Start 07/13/19 at 22:00 Oxycodone/ Acetaminophen (Percocet 5/325) 1 tab PRN Q4HRS PRN PO MILD PAIN, 1ST CHOICE Last administered on 07/15/19at 08:58; Start 07/13/19 at 20:30 Oxycodone/ Acetaminophen (Percocet 5/325) 2 tab PRN Q4HRS PRN PO MODERATE PAIN, SEVERE PAIN Last administered on 07/14/19 21:17; Start 07/13/19 at 20:30 Methocarbamol (Robaxin) 750 mg PRN TID PRN PO MUSCLE SPASMS Last administered on 07/14/19 21:16; Start 07/13/19 at 20:30 Docusate Sodium (Colace) 100 mg BID PO Last administered on 07/15/19at 08:43; Start 07/14/19 at 09:00 Magnesium Hydroxide (Milk Of Magnesia) 2,400 mg PRN Q12HR PRN PO CONSTIPATION; Start 07/13/19 at 20:30 Ondansetron HCl (Zofran) 4 mg PRN Q6HRS PRN IVP NAUESA, 1ST CHOICE; Start 07/13/19 at 20:30 Bupropion HCl (Wellbutrin Sr) 200 mg [id number] PO Last administered on 07/15/19at 08:43; Start 07/14/19 at 09:00 Famotidine (Pepcid) 20 mg [id number] PO Last administered on 07/15/19at 06:22; Start 07/14/19 at 01:00 Oxybutynin Chloride (Ditropan) 5 mg HS PO Last administered on 07/14/19at 21:16; Start 07/14/19 at 21:00 Dexamethasone Sodium Phosphate (Decadron) 10 mg 1X ONCE IV Last administered on 07/14/19at 12:27; Start 07/14/19 at 12:30; Stop 07/14/19 at 12:31; Status DC Dexamethasone Sodium Phosphate (Decadron) 4 mg Q6HRS IVP Last administered on 07/15/19at 06:22; Start 07/14/19 at 18:00; Stop 07/15/19 at 11:52; Status DC Active Scripts Active Reported Famotidine 20 Mg Tablet 20 Mg PO HS Oxybutynin Chloride Er (Oxybutynin Chloride) 10 Mg Tab.er.24 10 Mg PO DAILY Multivitamins (Multivitamin) 1 Each Tablet 1 Tab PO DAILY Triamterene-Hctz 37.5-25 Mg Cp (Triamterene/Hydrochlorothiazid) 1 Each Capsule 1 Cap PO DAILY Wellbutrin Sr (Bupropion Hcl) 200 Mg Tablet.er 1 Tab PO BID Pristiq Er (Desvenlafaxine Succinate) 100 Mg Tab.er.24h 1 Tab PO DAILY Vitals/I & O Vital Sign - Last 24 Hours 07/14/19 07/14/19 07/14/19 07/14/19 12:35 13:00 15:00 16:11 Pulse 91 96 Resp 16 14 20 20 B/P (MAP) 124/81 (95) 133/81 (98) Pulse Ox 92 O2 Delivery Room Air Room Air 07/14/19 07/14/19 07/14/19 07/14/19 17:23 18:27 21:17 22:25 Temp 98.3 98.3 Pulse 92 Resp 20 20 20 20 B/P (MAP) 123/74 (90) Pulse Ox 95 O2 Delivery Room Air Room Air Room Air 07/14/19 07/15/19 07/15/19 07/15/19 23:00 03:00 05:57 06:36 Temp 98.5 98.5 Pulse 80 Resp 20 24 20 B/P (MAP) 130/66 (87) Pulse Ox 92 O2 Delivery Room Air Room Air Room Air 07/15/19 07/15/19 07/15/19 07/15/19 08:20 08:58 10:00 10:35 O2 Delivery Room Air Room Air Room Air Room Air 07/15/19 10:55 Temp 98.6 98.6 Pulse 88 Resp 16 B/P (MAP) 120/67 (84) Pulse Ox 91 O2 Delivery Room Air Intake and Output 07/14/19 07/14/19 07/15/19 15:00 23:00 07:00 Intake Total 2675 ml 1325 ml Output Total 60 ml 2650 ml 575 ml Balance -60 ml 25 ml 750 ml BRANDY SNYDER APRN Jul 15, 2019 12:15
[2019-07-15] MEDS: POTASSIUM CL 20MEQ D5-0.45NACL 1,000 ML IV SCH (14:00)
--- NOTE | 2019-07-15 15:00 | NUR ---
AMBULATING BETTER WITH WALKER WITH ASSIST X'S 1. PHYSICAL THERAPY WILL WORK WITH PT THIS AFTERNOON. CONT. MONITOR.
[2019-07-15 15:29] VITALS: BP 130/87
--- NOTE | 2019-07-15 17:15 | NUR ---
TRANSFERRED TO ROOM 440 BY W/C.
[2019-07-15 19:40] VITALS: BP 114/70
[2019-07-15] MEDS: OXYBUTYNIN CHLORIDE 5 MG TABLET PO SCH (21:24)
[2019-07-15 23:19] VITALS: BP 139/88
[2019-07-16] MEDS: POTASSIUM CL 20MEQ D5-0.45NACL 1,000 ML IV SCH ×2 (03:20→16:40)
[2019-07-16 03:27] VITALS: BP 122/78
[2019-07-16 07:00] VITALS: BP 109/65
[2019-07-16] MEDS: buPROPion SR 100 MG TABLET.SA. PO SCH ×2 (09:29→15:58)
[2019-07-16] MEDS: TRIAMTERENE/HCTZ 37.5/25MG TABLET. PO SCH (09:30)
[2019-07-16] MEDS: DOCUSATE SODIUM 100 MG CAPSULE. PO SCH ×2 (09:30→21:11)
[2019-07-16] MEDS: FAMOTIDINE 20 MG TABLET. PO SCH ×2 (09:30→17:39)
[2019-07-16] MEDS: MULTIVITAMIN with MINERAL TABLET. PO SCH (09:30)
[2019-07-16] MEDS: DESVENLAFAXINE 25 MG TAB.ER.24H PO SCH (09:30)
--- NOTE | 2019-07-16 10:26 | PDOC ---
PROGRESS NOTES Subjective Subjective pod #3 Sitting up in bed some incisional pain, controlled with medication left foot numbness/ tingling, remains weak some numbness in right posterior thigh voiding without difficulty, bladder control improved sever left leg pain resolved Objective Objective Vital Signs Date Time Temp Pulse Resp B/P (MAP) Pulse Ox O2 Delivery O2 Flow Rate FiO2 07/16/19 07:00 97.8 75 18 109/65 (80) 98 Room Air 97.8 07/13/19 23:46 3.0 Intake and Output 07/16/19 07:00 Intake Total 1260 ml Output Total 830 ml Balance 430 ml Intake Oral 1260 ml Output Urine Total 830 ml # Voids 4 Physical Exam General: Alert, Oriented X3, Cooperative, No acute distress MUSCULOSKELETAL: Other (DANG) Neuro: Other (strength 5/5 in BLE except 4/5 left dorsiflexion) Skin: Other (dressing C,D,I, flat) Plan Plan of Care increase activity as tolerated continue to monitor incision for drainage PT AFO ordered likely home Thursday Comment Review of Relevant I have reviewed the following items priti (where applicable) has been applied. Medications Current Medications Ondansetron HCl (Zofran) 4 mg PRN Q6HRS PRN IV NAUSEA/VOMITING; Start 07/13/19 at 07:00; Stop 07/14/19 at 06:59; Status DC Fentanyl Citrate (Fentanyl 2ml Vial) 25 mcg PRN Q5MIN PRN IV MILD PAIN 1-3; Start 07/13/19 at 07:00; Stop 07/14/19 at 06:59; Status DC Fentanyl Citrate (Fentanyl 2ml Vial) 50 mcg PRN Q5MIN PRN IV MODERATE TO SEVERE PAIN; Start 07/13/19 at 07:00; Stop 07/14/19 at 06:59; Status DC Morphine Sulfate (Morphine Sulfate) 1 mg PRN Q10MIN PRN IV SEVERE PAIN 7-10 Last administered on 07/13/19at 20:01; Start 07/13/19 at 07:00; Stop 07/14/19 at 06:59; Status DC Ringer's Solution 1,000 ml @ 30 mls/hr Q24H IV Last administered on 07/13/19at 07:00; Start 07/13/19 at 07:00; Stop 07/13/19 at 18:59; Status DC Lidocaine HCl (Xylocaine-Mpf 1% 2ml Vial) 2 ml PRN 1X PRN ID PRIOR TO IV START; Start 07/13/19 at 07:00; Stop 07/14/19 at 06:59; Status DC Hydromorphone HCl (Dilaudid) 0.5 mg PRN Q10MIN PRN IV SEV PAIN, Second choice Last administered on 07/13/19at 20:36; Start 07/13/19 at 07:00; Stop 07/14/19 at 06:59; Status DC Prochlorperazine Edisylate (Compazine) 5 mg PACU PRN PRN IV NAUSEA, MRX1; Start 07/13/19 at 07:00; Stop 07/14/19 at 06:59; Status DC Vancomycin HCl 250 ml @ 250 mls/hr 1X PREOP PRN IV PRIOR TO PROCEDURE Last administered on 07/13/19at 12:56; Start 07/13/19 at 06:00; Stop 07/13/19 at 18:00; Status DC Bacitracin 00159 unit/Sodium Chloride 1,000 ml @ 1,000 mls/hr 1X ONCE IRR Last administered on 07/13/19 13:55; Start 07/13/19 at 06:00; Stop 07/13/19 at 06:59; Status DC Bupivacaine HCl/ Epinephrine Bitart (Sensorcain-Epi 0.5%-1:512538 Mpf) 30 ml 1X ONCE INJ Last administered on 07/13/19at 13:55; Start 07/13/19 at 06:00; Stop 07/13/19 at 06:01; Status DC Gelatin (Gelfoam Size 100) 1 each STK-MED ONCE .ROUTE Last administered on 07/13/19at 13:55; Start 07/13/19 at 08:00; Stop 07/13/19 at 08:01; Status DC Ketorolac Tromethamine (Toradol Im) 60 mg STK-MED ONCE .ROUTE Last administered on 07/13/19 13:55; Start 07/13/19 at 08:00; Stop 07/13/19 at 08:01; Status DC Thrombin 20,000 unit STK-MED ONCE TP Last administered on 07/13/19at 13:55; Start 07/13/19 at 08:00; Stop 07/13/19 at 08:01; Status DC Propofol 20 ml @ As Directed STK-MED ONCE IV ; Start 07/13/19 at 10:45; Stop 07/13/19 at 10:45; Status DC Dexamethasone Sodium Phosphate (Decadron) 20 mg STK-MED ONCE .ROUTE ; Start 07/13/19 at 10:45; Stop 07/13/19 at 10:45; Status DC Lidocaine HCl (Lidocaine Pf 2% Vial) 5 ml STK-MED ONCE .ROUTE ; Start 07/13/19 at 10:45; Stop 07/13/19 at 10:45; Status DC Ondansetron HCl (Zofran) 4 mg STK-MED ONCE .ROUTE ; Start 07/13/19 at 10:45; Stop 07/13/19 at 10:45; Status DC Phenylephrine HCl (Braydon-Synephrine Inj) 10 mg STK-MED ONCE .ROUTE ; Start 07/13/19 at 10:45; Stop 07/13/19 at 10:45; Status DC Propofol 50 ml @ As Directed STK-MED ONCE IV ; Start 07/13/19 at 10:45; Stop 07/13/19 at 10:45; Status DC Rocuronium [place] (Zemuron) 50 mg STK-MED ONCE .ROUTE ; Start 07/13/19 at 10:45; Stop 07/13/19 at 10:45; Status DC Remifentanil HCl (Ultiva) 2 mg STK-MED ONCE IV ; Start 07/13/19 at 10:45; Stop 07/13/19 at 10:45; Status DC Multi-Ingred Cream/Lotion/Oil/ Oint (Artificial Tears Eye Ointment) 7 wiley STK- MED ONCE .ROUTE ; Start 07/13/19 at 10:58; Stop 07/13/19 at 10:58; Status DC Desflurane (Suprane) 90 ml STK-MED ONCE IH ; Start 07/13/19 at 10:58; Stop 07/13/19 at 10:59; Status DC Propofol 50 ml @ As Directed STK-MED ONCE IV ; Start 07/13/19 at 14:18; Stop 07/13/19 at 14:18; Status DC Propofol 50 ml @ As Directed STK-MED ONCE IV ; Start 07/13/19 at 15:44; Stop 07/13/19 at 15:44; Status DC Remifentanil HCl (Ultiva) 1 mg STK-MED ONCE IV ; Start 07/13/19 at 16:02; Stop 07/13/19 at 16:02; Status DC Esmolol HCl (Brevibloc) 100 mg STK-MED ONCE IVP ; Start 07/13/19 at 16:38; Stop 07/13/19 at 16:38; Status DC Fentanyl Citrate (Fentanyl 2ml Vial) 100 mcg STK-MED ONCE .ROUTE ; Start 07/13/19 at 16:44; Stop 07/13/19 at 16:45; Status DC Remifentanil HCl (Ultiva) 1 mg STK-MED ONCE IV ; Start 07/13/19 at 17:30; Stop 07/13/19 at 17:30; Status DC Neostigmine Methylsulfate (Neostigmine Methylsulfate) 5 mg STK-MED ONCE .ROUTE ; Start 07/13/19 at 18:36; Stop 07/13/19 at 18:36; Status DC Glycopyrrolate (Robinul) 1 mg STK-MED ONCE .ROUTE ; Start 07/13/19 at 18:36; Stop 07/13/19 at 18:36; Status DC Propofol 20 ml @ As Directed STK-MED ONCE IV ; Start 07/13/19 at 18:47; Stop 07/13/19 at 18:47; Status DC Fentanyl Citrate (Fentanyl 2ml Vial) 100 mcg STK-MED ONCE .ROUTE ; Start 07/13/19 at 19:34; Stop 07/13/19 at 19:34; Status DC Famotidine (Pepcid) 20 mg DAILY PO ; Start 07/14/19 at 09:00; Stop 07/14/19 at 00:12; Status DC Bupropion HCl (Wellbutrin Sr) 200 mg BID PO Last administered on 07/13/19at 23:54; Start 07/13/19 at 22:00; Stop 07/14/19 at 00:12; Status DC Desvenlafaxine Succinate (Pristiq Er) 100 mg DAILY PO Last administered on 07/16/19at 09:30; Start 07/14/19 at 09:00 Multivitamins (Thera M Plus) 1 tab DAILY PO Last administered on 07/16/19at 09:30; Start 07/14/19 at 09:00 Oxybutynin Chloride (Ditropan) 5 mg BID PO ; Start 07/14/19 at 09:00; Stop 07/14/19 at 00:12; Status DC Triamterene/HCTZ (Maxzide 37.5/ 25mg) 1 tab DAILY PO Last administered on 07/16/19 09:30; Start 07/14/19 at 09:00 Fentanyl Citrate (Fentanyl 2ml Vial) 50 mcg PRN Q2HR PRN IVP PAIN Last administered on 07/15/19at 10:04; Start 07/13/19 at 20:30 Acetaminophen (Tylenol) 650 mg PRN Q6HRS PRN PO MILD PAIN / TEMP; Start 07/13/19 at 20:30 Al Hydroxide/Mg Hydroxide (Mylanta Plus Xs) 30 ml PRN Q3HRS PRN PO HEARTBURN / GAS; Start 07/13/19 at 20:30 Calcium Carbonate/ Glycine (Tums) 500 mg PRN Q3HRS PRN PO INDIGESTION Last administered on 07/14/19at 00:03; Start 07/13/19 at 20:30 Diphenhydramine HCl (Benadryl) 25 mg PRN Q6HRS PRN PO ITCHING; Start 07/13/19 at 20:30 Zolpidem Tartrate (Ambien) 5 mg PRN QHS PRN PO INSOMNIA, MAY REPEAT IN 1HR; Start 07/13/19 at 20:30 Naloxone HCl (Narcan) 0.1 mg PRN Q2MIN PRN IV ADMIN; Start 07/13/19 at 20:30 Sodium Chloride (Normal Saline Flush) 3 ml QSHIFT PRN IV AFTER MEDS AND BLOOD DRAWS; Start 07/13/19 at 20:30 Potassium Chloride/Dextrose/ Sod Cl 1,000 ml @ 75 mls/hr [id number] IV Last administered on 07/14/19at 22:55; Start 07/13/19 at 22:00 Oxycodone/ Acetaminophen (Percocet 5/325) 1 tab PRN Q4HRS PRN PO MILD PAIN, 1ST CHOICE Last administered on 07/15/19 08:58; Start 07/13/19 at 20:30 Oxycodone/ Acetaminophen (Percocet 5/325) 2 tab PRN Q4HRS PRN PO MODERATE PAIN, SEVERE PAIN Last administered on 07/15/19 21:24; Start 07/13/19 at 20:30 Methocarbamol (Robaxin) 750 mg PRN TID PRN PO MUSCLE SPASMS Last administered on 07/14/19 21:16; Start 07/13/19 at 20:30 Docusate Sodium (Colace) 100 mg BID PO Last administered on 07/16/19at 09:30; Start 07/14/19 at 09:00 Magnesium Hydroxide (Milk Of Magnesia) 2,400 mg PRN Q12HR PRN PO CONSTIPATION; Start 07/13/19 at 20:30 Ondansetron HCl (Zofran) 4 mg PRN Q6HRS PRN IVP NAUESA, 1ST CHOICE; Start 07/13/19 at 20:30 Bupropion HCl (Wellbutrin Sr) 200 mg [id number] PO Last administered on 07/16/19at 09:29; Start 07/14/19 at 09:00 Famotidine (Pepcid) 20 mg [id number] PO Last administered on 07/16/19at 09:30; Start 07/14/19 at 01:00 Oxybutynin Chloride (Ditropan) 5 mg HS PO Last administered on 07/15/19at 21:24; Start 07/14/19 at 21:00 Dexamethasone Sodium Phosphate (Decadron) 10 mg 1X ONCE IV Last administered on 07/14/19at 12:27; Start 07/14/19 at 12:30; Stop 07/14/19 at 12:31; Status DC Dexamethasone Sodium Phosphate (Decadron) 4 mg Q6HRS IVP Last administered on 07/15/19at 06:22; Start 07/14/19 at 18:00; Stop 07/15/19 at 11:52; Status DC Active Scripts Active Reported Famotidine 20 Mg Tablet 20 Mg PO HS Oxybutynin Chloride Er (Oxybutynin Chloride) 10 Mg Tab.er.24 10 Mg PO DAILY Multivitamins (Multivitamin) 1 Each Tablet 1 Tab PO DAILY Triamterene-Hctz 37.5-25 Mg Cp (Triamterene/Hydrochlorothiazid) 1 Each Capsule 1 Cap PO DAILY Wellbutrin Sr (Bupropion Hcl) 200 Mg Tablet.er 1 Tab PO BID Pristiq Er (Desvenlafaxine Succinate) 100 Mg Tab.er.24h 1 Tab PO DAILY Vitals/I & O Vital Sign - Last 24 Hours 07/15/19 07/15/19 07/15/19 07/15/19 10:35 10:55 15:29 19:40 Temp 98.6 97.9 97.5 98.6 97.9 97.5 Pulse 88 89 80 Resp 16 18 18 B/P (MAP) 120/67 (84) 130/87 (101) 114/70 (85) Pulse Ox 91 93 93 O2 Delivery Room Air Room Air Room Air Room Air 07/15/19 07/15/19 07/15/19 07/15/19 20:00 21:24 22:25 23:19 Temp 98.1 98.1 Pulse 96 Resp 18 20 18 B/P (MAP) 139/88 (105) Pulse Ox 93 93 O2 Delivery Room Air Room Air Room Air 07/16/19 07/16/19 03:27 07:00 Temp 98.2 97.8 98.2 97.8 Pulse 18 75 Resp 18 18 B/P (MAP) 122/78 (93) 109/65 (80) Pulse Ox 94 98 O2 Delivery Room Air Room Air Intake and Output 07/15/19 07/15/19 07/16/19 15:00 23:00 07:00 Intake Total 240 ml 240 ml 780 ml Output Total 830 ml Balance -590 ml 240 ml 780 ml BRANDY SNYDER APRN Jul 16, 2019 10:26
[2019-07-16 11:00] VITALS: BP 143/86
[2019-07-16] MEDS: METHOCARBAMOL 750 MG TABLET PO PRN ×2 (11:54→21:11)
[2019-07-16] MEDS: oxyCODONE/APAP 5/325 1 TAB TABLET PO PRN ×2 (11:54→21:11)
[2019-07-16 15:00] VITALS: BP 144/84
[2019-07-16 19:00] VITALS: BP 118/62
[2019-07-16] MEDS: OXYBUTYNIN CHLORIDE 5 MG TABLET PO SCH (21:11)
[2019-07-16 23:00] VITALS: BP 147/87
[2019-07-17 03:00] VITALS: BP 106/48
[2019-07-17] MEDS: FAMOTIDINE 20 MG TABLET. PO SCH ×2 (05:27→20:27)
[2019-07-17] MEDS: oxyCODONE/APAP 5/325 1 TAB TABLET PO PRN ×2 (05:28→15:31)
[2019-07-17 07:00] VITALS: BP 145/78
[2019-07-17] MEDS: MULTIVITAMIN with MINERAL TABLET. PO SCH (09:30)
[2019-07-17] MEDS: TRIAMTERENE/HCTZ 37.5/25MG TABLET. PO SCH (09:30)
[2019-07-17] MEDS: buPROPion SR 100 MG TABLET.SA. PO SCH ×2 (09:30→15:30)
[2019-07-17] MEDS: DOCUSATE SODIUM 100 MG CAPSULE. PO SCH ×2 (09:31→20:27)
[2019-07-17] MEDS: DESVENLAFAXINE 25 MG TAB.ER.24H PO SCH (09:31)
[2019-07-17 11:00] VITALS: BP 135/94
--- NOTE | 2019-07-17 12:03 | PDOC ---
PROGRESS NOTES Subjective Subjective ambulating in room with walker no significant pain had BM yesterday voiding without difficulty left foot still with numbness/ tingling/ weakness Objective Objective Vital Signs Date Time Temp Pulse Resp B/P (MAP) Pulse Ox O2 Delivery O2 Flow Rate FiO2 07/17/19 11:00 98.1 97 18 135/94 (108) 97 Room Air 98.1 07/16/19 08:00 3.0 Intake and Output 07/17/19 07:00 Intake Total 100 ml Balance 100 ml Intake Oral 100 ml # Voids 2 # Bowel Movements 1 Physical Exam General: Alert, Oriented X3, Cooperative, No acute distress Neuro: Normal speech, Other (strength 5/5 in BLE except 4/5 left dorsiflexion) Skin: Other (dressing C,D,I, flat) Plan Plan of Care continue to increase activity as tolerated incision checks PT likely home tomorrow with HH Comment Review of Relevant I have reviewed the following items priti (where applicable) has been applied. Medications Current Medications Ondansetron HCl (Zofran) 4 mg PRN Q6HRS PRN IV NAUSEA/VOMITING; Start 07/13/19 at 07:00; Stop 07/14/19 at 06:59; Status DC Fentanyl Citrate (Fentanyl 2ml Vial) 25 mcg PRN Q5MIN PRN IV MILD PAIN 1-3; Start 07/13/19 at 07:00; Stop 07/14/19 at 06:59; Status DC Fentanyl Citrate (Fentanyl 2ml Vial) 50 mcg PRN Q5MIN PRN IV MODERATE TO SEVERE PAIN; Start 07/13/19 at 07:00; Stop 07/14/19 at 06:59; Status DC Morphine Sulfate (Morphine Sulfate) 1 mg PRN Q10MIN PRN IV SEVERE PAIN 7-10 Last administered on 07/13/19at 20:01; Start 07/13/19 at 07:00; Stop 07/14/19 at 06:59; Status DC Ringer's Solution 1,000 ml @ 30 mls/hr Q24H IV Last administered on 07/13/19at 07:00; Start 07/13/19 at 07:00; Stop 07/13/19 at 18:59; Status DC Lidocaine HCl (Xylocaine-Mpf 1% 2ml Vial) 2 ml PRN 1X PRN ID PRIOR TO IV START; Start 07/13/19 at 07:00; Stop 07/14/19 at 06:59; Status DC Hydromorphone HCl (Dilaudid) 0.5 mg PRN Q10MIN PRN IV SEV PAIN, Second choice Last administered on 07/13/19at 20:36; Start 07/13/19 at 07:00; Stop 07/14/19 at 06:59; Status DC Prochlorperazine Edisylate (Compazine) 5 mg PACU PRN PRN IV NAUSEA, MRX1; Start 07/13/19 at 07:00; Stop 07/14/19 at 06:59; Status DC Vancomycin HCl 250 ml @ 250 mls/hr 1X PREOP PRN IV PRIOR TO PROCEDURE Last a dministered on 07/13/19at 12:56; Start 07/13/19 at 06:00; Stop 07/13/19 at 18:00; Status DC Bacitracin 71009 unit/Sodium Chloride 1,000 ml @ 1,000 mls/hr 1X ONCE IRR Last administered on 07/13/19 13:55; Start 07/13/19 at 06:00; Stop 07/13/19 at 06:59; Status DC Bupivacaine HCl/ Epinephrine Bitart (Sensorcain-Epi 0.5%-1:210527 Mpf) 30 ml 1X ONCE INJ Last administered on 07/13/19at 13:55; Start 07/13/19 at 06:00; Stop 07/13/19 at 06:01; Status DC Gelatin (Gelfoam Size 100) 1 each STK-MED ONCE .ROUTE Last administered on 07/13/19at 13:55; Start 07/13/19 at 08:00; Stop 07/13/19 at 08:01; Status DC Ketorolac Tromethamine (Toradol Im) 60 mg STK-MED ONCE .ROUTE Last administered on 07/13/19at 13:55; Start 07/13/19 at 08:00; Stop 07/13/19 at 08:01; Status DC Thrombin 20,000 unit STK-MED ONCE TP Last administered on 07/13/19at 13:55; Start 07/13/19 at 08:00; Stop 07/13/19 at 08:01; Status DC Propofol 20 ml @ As Directed STK-MED ONCE IV ; Start 07/13/19 at 10:45; Stop 07/13/19 at 10:45; Status DC Dexamethasone Sodium Phosphate (Decadron) 20 mg STK-MED ONCE .ROUTE ; Start 07/13/19 at 10:45; Stop 07/13/19 at 10:45; Status DC Lidocaine HCl (Lidocaine Pf 2% Vial) 5 ml STK-MED ONCE .ROUTE ; Start 07/13/19 at 10:45; Stop 07/13/19 at 10:45; Status DC Ondansetron HCl (Zofran) 4 mg STK-MED ONCE .ROUTE ; Start 07/13/19 at 10:45; Stop 07/13/19 at 10:45; Status DC Phenylephrine HCl (Braydon-Synephrine Inj) 10 mg STK-MED ONCE .ROUTE ; Start 07/13/19 at 10:45; Stop 07/13/19 at 10:45; Status DC Propofol 50 ml @ As Directed STK-MED ONCE IV ; Start 07/13/19 at 10:45; Stop 07/13/19 at 10:45; Status DC Rocuronium [place] (Zemuron) 50 mg STK-MED ONCE .ROUTE ; Start 07/13/19 at 10:45; Stop 07/13/19 at 10:45; Status DC Remifentanil HCl (Ultiva) 2 mg STK-MED ONCE IV ; Start 07/13/19 at 10:45; Stop 07/13/19 at 10:45; Status DC Multi-Ingred Cream/Lotion/Oil/ Oint (Artificial Tears Eye Ointment) 7 wiley STK- MED ONCE .ROUTE ; Start 07/13/19 at 10:58; Stop 07/13/19 at 10:58; Status DC Desflurane (Suprane) 90 ml STK-MED ONCE IH ; Start 07/13/19 at 10:58; Stop 07/13/19 at 10:59; Status DC Propofol 50 ml @ As Directed STK-MED ONCE IV ; Start 07/13/19 at 14:18; Stop 07/13/19 at 14:18; Status DC Propofol 50 ml @ As Directed STK-MED ONCE IV ; Start 07/13/19 at 15:44; Stop 07/13/19 at 15:44; Status DC Remifentanil HCl (Ultiva) 1 mg STK-MED ONCE IV ; Start 07/13/19 at 16:02; Stop 07/13/19 at 16:02; Status DC Esmolol HCl (Brevibloc) 100 mg STK-MED ONCE IVP ; Start 07/13/19 at 16:38; Stop 07/13/19 at 16:38; Status DC Fentanyl Citrate (Fentanyl 2ml Vial) 100 mcg STK-MED ONCE .ROUTE ; Start 07/13/19 at 16:44; Stop 07/13/19 at 16:45; Status DC Remifentanil HCl (Ultiva) 1 mg STK-MED ONCE IV ; Start 07/13/19 at 17:30; Stop 07/13/19 at 17:30; Status DC Neostigmine Methylsulfate (Neostigmine Methylsulfate) 5 mg STK-MED ONCE .ROUTE ; Start 07/13/19 at 18:36; Stop 07/13/19 at 18:36; Status DC Glycopyrrolate (Robinul) 1 mg STK-MED ONCE .ROUTE ; Start 07/13/19 at 18:36; Stop 07/13/19 at 18:36; Status DC Propofol 20 ml @ As Directed STK-MED ONCE IV ; Start 07/13/19 at 18:47; Stop 07/13/19 at 18:47; Status DC Fentanyl Citrate (Fentanyl 2ml Vial) 100 mcg STK-MED ONCE .ROUTE ; Start 07/13/19 at 19:34; Stop 07/13/19 at 19:34; Status DC Famotidine (Pepcid) 20 mg DAILY PO ; Start 07/14/19 at 09:00; Stop 07/14/19 at 00:12; Status DC Bupropion HCl (Wellbutrin Sr) 200 mg BID PO Last administered on 07/13/19at 23:54; Start 07/13/19 at 22:00; Stop 07/14/19 at 00:12; Status DC Desvenlafaxine Succinate (Pristiq Er) 100 mg DAILY PO Last administered on 07/17/19at 09:31; Start 07/14/19 at 09:00 Multivitamins (Thera M Plus) 1 tab DAILY PO Last administered on 07/17/19at 09:30; Start 07/14/19 at 09:00 Oxybutynin Chloride (Ditropan) 5 mg BID PO ; Start 07/14/19 at 09:00; Stop 07/14/19 at 00:12; Status DC Triamterene/HCTZ (Maxzide 37.5/ 25mg) 1 tab DAILY PO Last administered on 07/17/19at 09:30; Start 07/14/19 at 09:00 Fentanyl Citrate (Fentanyl 2ml Vial) 50 mcg PRN Q2HR PRN IVP PAIN Last administered on 07/15/19at 10:04; Start 07/13/19 at 20:30 Acetaminophen (Tylenol) 650 mg PRN Q6HRS PRN PO MILD PAIN / TEMP; Start at 20:30 Al Hydroxide/Mg Hydroxide (Mylanta Plus Xs) 30 ml PRN Q3HRS PRN PO HEARTBURN / GAS; Start 07/13/19 at 20:30 Calcium Carbonate/ Glycine (Tums) 500 mg PRN Q3HRS PRN PO INDIGESTION Last administered on 07/14/19at 00:03; Start 07/13/19 at 20:30 Diphenhydramine HCl (Benadryl) 25 mg PRN Q6HRS PRN PO ITCHING; Start 07/13/19 at 20:30 Zolpidem Tartrate (Ambien) 5 mg PRN QHS PRN PO INSOMNIA, MAY REPEAT IN 1HR; Start 07/13/19 at 20:30 Naloxone HCl (Narcan) 0.1 mg PRN Q2MIN PRN IV ADMIN; Start 07/13/19 at 20:30 Sodium Chloride (Normal Saline Flush) 3 ml QSHIFT PRN IV AFTER MEDS AND BLOOD DRAWS; Start 07/13/19 at 20:30 Potassium Chloride/Dextrose/ Sod Cl 1,000 ml @ 75 mls/hr [id number] IV Last administered on 07/14/19at 22:55; Start 07/13/19 at 22:00; Stop 07/16/19 at 17:13; Status DC Oxycodone/ Acetaminophen (Percocet 5/325) 1 tab PRN Q4HRS PRN PO MILD PAIN, 1ST CHOICE Last administered on 07/16/19at 21:11; Start 07/13/19 at 20:30 Oxycodone/ Acetaminophen (Percocet 5/325) 2 tab PRN Q4HRS PRN PO MODERATE PAIN, SEVERE PAIN Last administered on 07/17/19 05:28; Start 07/13/19 at 20:30 Methocarbamol (Robaxin) 750 mg PRN TID PRN PO MUSCLE SPASMS Last administered on 07/16/19at 21:11; Start 07/13/19 at 20:30 Docusate Sodium (Colace) 100 mg BID PO Last administered on 07/17/19at 09:31; Start 07/14/19 at 09:00 Magnesium Hydroxide (Milk Of Magnesia) 2,400 mg PRN Q12HR PRN PO CONSTIPATION; Start 07/13/19 at 20:30 Ondansetron HCl (Zofran) 4 mg PRN Q6HRS PRN IVP NAUESA, 1ST CHOICE; Start 07/13/19 at 20:30 Bupropion HCl (Wellbutrin Sr) 200 mg [id number] PO Last administered on 07/17/19at 09:30; Start 07/14/19 at 09:00 Famotidine (Pepcid) 20 mg [id number] PO Last administered on 07/17/19 05:27; Start 07/14/19 at 01:00 Oxybutynin Chloride (Ditropan) 5 mg HS PO Last administered on 07/16/19at 21:11; Start 07/14/19 at 21:00 Dexamethasone Sodium Phosphate (Decadron) 10 mg 1X ONCE IV Last administered on 07/14/19at 12:27; Start 07/14/19 at 12:30; Stop 07/14/19 at 12:31; Status DC Dexamethasone Sodium Phosphate (Decadron) 4 mg Q6HRS IVP Last administered on 07/15/19at 06:22; Start 07/14/19 at 18:00; Stop 07/15/19 at 11:52; Status DC Active Scripts Active Reported Famotidine 20 Mg Tablet 20 Mg PO HS Oxybutynin Chloride Er (Oxybutynin Chloride) 10 Mg Tab.er.24 10 Mg PO DAILY Multivitamins (Multivitamin) 1 Each Tablet 1 Tab PO DAILY Triamterene-Hctz 37.5-25 Mg Cp (Triamterene/Hydrochlorothiazid) 1 Each Capsule 1 Cap PO DAILY Wellbutrin Sr (Bupropion Hcl) 200 Mg Tablet.er 1 Tab PO BID Pristiq Er (Desvenlafaxine Succinate) 100 Mg Tab.er.24h 1 Tab PO DAILY Vitals/I & O Vital Sign - Last 24 Hours 07/16/19 07/16/19 07/16/19 07/16/19 12:54 15:00 19:00 20:00 Temp 97.9 97.9 97.9 97.9 Pulse 94 88 Resp 20 18 18 B/P (MAP) 144/84 (104) 118/62 (80) Pulse Ox 95 97 O2 Delivery Room Air Room Air Room Air Room Air 07/16/19 07/16/19 07/16/19 07/17/19 21:11 22:11 23:00 03:00 Temp 97.8 97.9 97.8 97.9 Pulse 70 81 Resp 18 18 B/P (MAP) 147/87 (107) 106/48 (67) Pulse Ox 98 97 O2 Delivery Room Air Room Air Room Air Room Air 07/17/19 07/17/19 07/17/19 07/17/19 05:28 06:28 07:00 11:00 Temp 98.0 98.1 98.0 98.1 Pulse 85 97 Resp 18 18 B/P (MAP) 145/78 (100) 135/94 (108) Pulse Ox 98 97 O2 Delivery Room Air Room Air Room Air Room Air Intake and Output 07/16/19 07/16/19 07/17/19 15:00 23:00 07:00 Intake Total 100 ml Balance 100 ml BRANDY SNYDER APRN Jul 17, 2019 12:02
[2019-07-17 15:00] VITALS: BP 108/64
[2019-07-17 19:00] VITALS: BP 131/87
[2019-07-17] MEDS: OXYBUTYNIN CHLORIDE 5 MG TABLET PO SCH (20:27)
[2019-07-17 23:00] VITALS: BP 103/52
[2019-07-18 03:00] VITALS: BP 107/69
[2019-07-18] MEDS: FAMOTIDINE 20 MG TABLET. PO SCH (05:44)
[2019-07-18 07:00] VITALS: BP 126/76
[2019-07-18] MEDS: buPROPion SR 100 MG TABLET.SA. PO SCH (08:52)
[2019-07-18] MEDS: DOCUSATE SODIUM 100 MG CAPSULE. PO SCH (08:52)
[2019-07-18] MEDS: MULTIVITAMIN with MINERAL TABLET. PO SCH (08:52)
[2019-07-18] MEDS: TRIAMTERENE/HCTZ 37.5/25MG TABLET. PO SCH (08:53)
[2019-07-18] MEDS: DESVENLAFAXINE 25 MG TAB.ER.24H PO SCH (08:53)
[2019-07-18 11:00] VITALS: BP 107/60
[2019-07-18] MEDS ORDERED: METH750T2 PO (13:23)
[2019-07-18] MEDS ORDERED: DOCU-153 PO (13:23)
[2019-07-18] MEDS ORDERED: OXYC1TAB15 PO (13:23)
--- NOTE | 2019-07-18 13:26 | SNU/HH DC ---
DISCHARGE WITH HOME HEALTH DISCHARGE INFORMATION: Discharge Date: Jul 18, 2019 Final Diagnosis: intradural mass Condition on Discharge: Stable CODE STATUS: Code Status: Full HOME HEALTH: Face to Face: I certify this patient is under my care and that I, or a nurse practitioner or physician's assistant housekeeping manager working with me, had a face to face encounter that meets the physician face to face encounter requirements with this patient on []. 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 Pringle in 2 weeks [phone] TREATMENT/EQUIPMENT ORDERS: Adaptive Equipment Issued: Front wheeled walker CERTIFICATION STATEMENT: Certification Statement: Certification Statement: Based on the above finding, I certify that this patient is confined to the home and needs intermittent fdc care, physical therapy and/or speech therapy, or continues to need occupational therapy.~ This patient is under my care, and I have initiated the establishment of the plan of care.~ This patient will be followed by myself or a community physician who will periodically review the plan of care. Home Meds Active Scripts Docusate Sodium (DOK) 100 Mg Capsule, 100 MG PO BID for constipation, #60 CAP Prov:MILENA PRINGLE MD 07/18/19 Oxycodone/Apap 5-325 (PERCOCET 5-325 MG TABLET ) 1 Each Tablet, 1 TAB PO PRN Q4HRS PRN for MILD PAIN, 1ST CHOICE, #40 TAB Prov:MILENA PRINGLE MD 07/18/19 Methocarbamol (METHOCARBAMOL) 750 Mg Tablet, 750 MG PO PRN TID PRN for MUSCLE SPASMS, #60 TAB Prov:MILENA PRINGLE MD 07/18/19 Reported Medications Famotidine (FAMOTIDINE) 20 Mg Tablet, 20 MG PO HS for REFLUX , TAB 07/05/19 Oxybutynin Chloride (OXYBUTYNIN CHLORIDE ER) 10 Mg Tab.er.24, 10 MG PO DAILY for BLADDER , TAB.SR 07/05/19 Multivitamin (MULTIVITAMINS) 1 Each Tablet, 1 TAB PO DAILY, #90 TAB 3 Refills 10/06/17 Triamterene/Hydrochlorothiazid (TRIAMTERENE-HCTZ 37.5-25 MG CP) 1 Each Capsule, 1 CAP PO DAILY, #30 CAP 5 Refills 10/06/17 Bupropion Hcl (WELLBUTRIN SR) 200 Mg Tablet.er, 1 TAB PO BID, #60 TAB 10/06/17 Desvenlafaxine Succinate (PRISTIQ ER) 100 Mg Tab.er.24h, 1 TAB PO DAILY, #30 TAB 1 Refill 10/06/17 MILENA PRINGLE MD Jul 18, 2019 13:26
--- NOTE | 2019-07-18 14:06 | PATHOLOGY ---
[facility] Accession Number: [id number] . 01 Material submitted: . PART A: vertebral column - LUMBAR DECOMPRESSION PART B: brain - DURAL MASS . 01 Clinical history: . Nerve sheath tumor, neurofibroma, schwannoma . 02 Diagnosis: A. Bone, cartilage and soft tissue "lumbar decompression": - Fragments of bone, cartilage and soft tissue revealing degenerative changes. . B. 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 - S100 stain is positive. - Findings are consistent with a schwannoma. - There is no evidence of atypia or malignancy. - See comment. (SHA:[facility]; 07/18/2019) [facility] 07/18/2019 1102 Local . 02 Comment: This case was originally reviewed by Dr. Juvenal Awad who ordered the S100 stain. . I agree with the above diagnosis. (ALC:[facility]; 07/18/2019) . 02 Electronically signed: . Alberto Mariee MD, Pathologist NPI- [id number] . 01 Gross description: . A. Received in formalin labeled "Lemon, Daina, lumbar decompression" is a 5.5 x 5.0 x 1.5 cm aggregate of stallings-white bone and pink-stallings friable soft tissue fragments. Manager Mental Health tissue is submitted in cassette A1 following decalcification. . B. Received in formalin labeled "Lemon, Daina, dural mass" are multiple fragments of stallings-brown friable tissue measuring in aggregate 3.0 x 2.0 x 0.5 cm. The specimen is submitted entirely in cassette B1-B2. (SK; 07/14/2019) SYC/SYC 07/14/2019 1746 Local . 02 Pathologist provided ICD-10: D33.2, M79.89 . 02 CPT . 799464, 273126, [id number], [id number] Specimen Comment: A courtesy copy of this report has been sent to [phone], [phone] Specimen Comment: [id number] Specimen Comment: Report sent to and Performed at: [address] [facility], [place] [id number] MD Raejndra Saenz MD Phone: [phone] Performed at: 02 [facility] [address] [place], [place] [id number] MD Juevnal Awad MD Phone: [phone]
--- NOTE | 2019-07-18 14:15 | NUR ---
Discharge Note: LAUREN FORDE Discharge instructions and discharge home medications reviewed with Patient and a copy given. All questions have been answered and understanding verbalized. The following instructions and handouts were given: information about medications, follow up appointments, incisional care, etc. Discontinued lines and drains: no IV line present. Patient discharged to home with home health with family member, wheelchair used for mobility to discharge vehicle.
--- NOTE | 2019-07-18 17:32 | OP ---
DATE OF SURGERY: 07/13/2019 PREOPERATIVE DIAGNOSIS: Intradural mass at L4-L5. POSTOPERATIVE DIAGNOSIS: Intradural mass at L4-L5. OPERATION PERFORMED: Laminectomy L4-L5, intradural exploration and excision of mass at L4-L5. The operation was done with multimodality monitoring, fluoroscopy, microscopic dissection, BrainLAB guidance. SURGEON: Boy Pringle M.D. OUTBOUND TELEMARKETING REPRESENTATIVE: BRITTANY Owen assisted with the surgery. She assisted with removal of the mass as well as closure. OPERATIVE INDICATIONS: The patient is a pleasant 54-year-old who has had difficulty with low back pain and left leg pain, which gradually became severe. The problem started about 1-1/2 years ago. She also noted difficulty with bladder function with urgency. On imaging studies, there was an intradural mass at L4-L5, which appeared most likely to be a schwannoma. I recommended lumbar surgery. I discussed the surgery, the risks, technique and expected postoperative course and she wished to go ahead. DESCRIPTION OF PROCEDURE: Following general endotracheal anesthesia, the patient was positioned prone on the Jace table. Lumbar region prepped and draped in standard fashion. AIDA hose and AV impulse boots were applied for DVT prophylaxis. A microscope was draped. Fluoroscopy was draped and brought into the field. Vancomycin 1 gram was given. The iliac pins were placed into the right iliac posts and the BrainLAB system was initialized. I then made a midline incision directly over L4 and L5. I dissected down through skin and subcutaneous tissue, reflected the paraspinal muscles and placed self-retaining retractors. I then removed the spinous processes, lamina of L4 and L5 and per the BrainLAB system, I was well above and well below the mass. I then brought in the microscope and using microscopic technique, I made a midline durotomy which I carried inferiorly with the angled dural guide. I did place a Nurolon stitches in each side to hold the opening and these were secured with Uribe clamps. Through the microscope, then using micro dissectors, passed gently through the nerve root and encountered then the large intradural mass, which had the appearance of a schwannoma. It was attached to the posterior aspect of the canal and I worked further superiorly and inferiorly, I did not feel my durotomy was long enough. I did trim more bone superiorly and inferiorly, carried my durotomy further, placed further tacking stitches and then at this point, then I felt that I was above the superior and below the inferior aspect of the mass. I gently peeled off nerve roots, which in some cases were densely adherent to the mass and I gently freed it up superiorly grasping the mass with pituitary. There was no possibility of removing it and that it would needed to be debulked to be safely removed from the field. I did try the CUSA, but felt that it was too dangerous and although I did not have any particular difficulties with it, I could see that using it aggressively to remove the mass in this setting, would most likely end resulted in some nerve root injury, based on the depth of the mass and the number of nerve roots were crowded around it. I then began to remove the mass in a piecemeal fashion with micro pituitaries and as I worked, I was able to gradually remove portions of the tumor. I worked diligently, I worked inferiorly. I was able to get around the inferior aspect of the tumor and again began to lift this superiorly. I worked and continued my removal and felt that I had removed the vast majority if not all of the tumor. There was some capsule left behind on the left side and deep, which was enveloped in nerve roots and I felt unsafe to dissect and pull out. At this point, then hemostasis was good. I closed the durotomy with interrupted 4-0 Nurolon. I irrigated copiously. I did use some blue glue over the surface of the durotomy site. There was no leakage of spinal fluid, we closed the wound in layers with absorbable suture and the skin was closed. I felt the operation went very well. BOY PRINGLE MD DR: RUDDY/boni JOB#: [id number] / [id number] YEMI
== END 2019-07-18 14:15 | disposition home health service (06) | DRG 520 ==
LOC: OPSVCIP 09:27 → 4 SOUTHEST 20:45 → 4 NORTH 07-15 17:05
PROVIDERS: ADMIT Neurological Surgery; ATTEND Neurological Surgery
PROC: 00BY0ZZ Excision of Lumbar Spinal Cord, Open Approach (ICD-10-PCS; principal; 2019-07-13 12:00)
DX: D36.17 Benign neoplasm of peripheral nerves and autonomic nervous system of trunk, unspecified (principal); M48.062 Spinal stenosis, lumbar region with neurogenic claudication; F17.200 Nicotine dependence, unspecified, uncomplicated; I10 Essential (primary) hypertension; Z82.49 Family history of ischemic heart disease and other diseases of the circulatory system; Z87.442 Personal history of urinary calculi; Z79.899 Other long term (current) drug therapy; Z88.8 Allergy status to other drugs, medicaments and biological substances
CPT/HCPCS: 36415; 72131; 86850; 86900; 86901; 88304; 88307; 88331; 88342; A7015; C1713; J1100; J1170; J1885; J2001; J2270; J2405; J2704; J2710; J3010; J3370; J3490; J7030; J7120; 97110; 97116; 97530; G0378

== ENCOUNTER → 2019-10-03 | Outpatient (CLI) | payer MEDICARE, MEDICAID ==
[~2019-10-03] MED LIST changes: -BACITRACIN 50,000 UNIT in IV NORMAL SALINE 1000ML BAG 1,000 ML IRR ONE; -BUPIVACAINE-EPI 0.5%-1:200000 MPF 30 ML VIAL. INJ ONE; +DOCU-153 PO; +GADOTERATE 5 MMOL/10ML VIAL. IVP ONE; -GELATIN SPONGE SIZE 100. ONE; -IV RINGERS,LACTATED 1000ML 1,000 ML IV SCH; -KETOROLAC 60 MG/2 ML VIAL. ONE; -LIDOCAINE 1% PF 2 ML VIAL. ID PRN; +METH750T2 PO; -ONDANSETRON PF 4 MG/2 ML VIAL. IV PRN; -OXYB10TA2 PO; +OXYB10TA26 PO; +OXYC1TAB15 PO; -PROCHLORPERAZINE 10 MG/2 ML VIAL. IV PRN; -THROMBIN TOPICAL 20,000 UNIT SPRAY.SYRN KIT TP ONE; -VANCOMYCIN 1GM IVPB FOR OMNI 250 ML IV PRN; -fentaNYL PF VIAL 100 MCG/2 ML VIAL IV PRN
--- NOTE | 2019-10-03 15:07 | KCIC ---
EXAM: Lumbar spine MRI without and with contrast. HISTORY: Schwannoma follow-up. Left foot and right thigh numbness. TECHNIQUE: Multiplanar, multisequence magnetic resonance imaging of the lumbar spine was performed prior to and following the administration of intravenous contrast. COMPARISON: CT dated 07/13/2019 and MRI dated 06/29/2019. FINDINGS: There are findings consistent with interval laminectomy surgery at L4-L5. The previously demonstrated enhancing mass within the central canal posterior to the superior aspect of L5 is no longer seen. There is irregular nonmasslike enhancement within this location measuring approximately 13 mm craniocaudally by 9 mm anteroposteriorly by 7 mm transversely, possibly due to scar/granulation tissue. There is also enhancement within the laminectomy decompression space due to suspected scar/granulation tissue. There is a tiny superimposed fluid collection measuring 2.2 cm craniocaudally by 0.7 cm transversely by 0.3 cm anteroposteriorly, likely a post operative seroma. There is a similar larger suspected seroma within the midline posterior back soft tissues dorsal to the spinous processes at L3 and L4 and L5. There is mild lumbar scoliosis. There is minimal retrolisthesis of L1 on L2 and T12 on L1. There is multilevel endplate remodeling. There is disc desiccation and disc space narrowing at L5-S1. There are few small endplate Schmorl's nodes. There is no suspicious osseous lesion. There is no acute or subacute fracture. There is edema within the posterior back soft soft tissues, a component of which is dependent in etiology. There is partial visualization of a complex multi loculated cystic lesion within the pelvis, likely ovarian in etiology. There is extensive distal colonic diverticulosis. At L1-L2, there is a disc bulge and endplate remodeling. There is minimal facet arthropathy. There is minimal retrolisthesis. There is mild bilateral foraminal stenosis. At L2-L3, there is a disc bulge and endplate remodeling. There is mild bilateral facet arthropathy. There is no stenosis. At L3-L4, there is a disc bulge and endplate remodeling. There is mild bilateral facet arthropathy. There is mild left foraminal stenosis. At L4-L5, there is a disc bulge and endplate remodeling. There is moderate bilateral facet arthropathy. There are laminectomy changes. There is no stenosis. At L5-S1, there is a left paracentral to extra foraminal disc protrusion and osteophyte complex superimposed on a diffuse disc bulge and left lateral predominant endplate osteophytosis. There is mild left greater than right facet arthropathy. There is mild right and moderate left foraminal stenosis. IMPRESSION: 1. Interval laminectomy changes at L4-L5 and suspected resection or near complete resection of a reported schwannoma posterior to L5. There is nonmasslike enhancement within the thecal sac at this level which may be due to scar/granulation tissue. The possibility of residual portion of the mass is not excluded. There is also enhancing scar/granulation tissue within the left kidney decompression space and small postoperative seromas within the laminectomy compression space and overlying midline posterior back soft tissues. No significant stenosis is seen at this level. 2. Degenerative change throughout the lumbar spine, described in detail above. This is associated with mild bilateral foraminal stenosis at L1-L2 and mild right and moderate left foraminal stenosis at L5-S1. 3. Multiloculated cystic lesion within the pelvis, partially included on the [id number]. This is likely ovarian in etiology. Correlate with a pelvic sonogram or pelvic MRI. 4. Extensive colonic diverticulosis. Electronically signed by: Christiana Pritchett MD (10/03/2019 3:05 PM) [id number]
== END | disposition home or self-care (01) ==
LOC: KCIC MRI 13:06
PROVIDERS: ATTEND Neurological Surgery
DX: M47.816 Spondylosis without myelopathy or radiculopathy, lumbar region (principal); M12.88 Other specific arthropathies, not elsewhere classified, other specified site; M25.78 Osteophyte, vertebrae; M48.07 Spinal stenosis, lumbosacral region; K57.30 Diverticulosis of large intestine without perforation or abscess without bleeding; D21.9 Benign neoplasm of connective and other soft tissue, unspecified; M51.46 Schmorl's nodes, lumbar region
CPT/HCPCS: 72158; A9575

== ENCOUNTER → 2020-08-08 | Outpatient (CLI) | payer MEDICARE, MEDICAID ==
[~2020-08-08] MED LIST changes: +MULT-445 PO; -MULT1TAB52 PO
--- NOTE | 2020-08-08 15:31 | KCIC ---
EXAMINATION: Magnetic resonance imaging (MRI) of the lumbar spine with and without contrast 08/08/2020 2:00 PM HISTORY: Schwannoma TECHNIQUE: Multiplanar multi-weighted MRI of the lumbar spine was performed with and without intraven ous contrast using the standard lumbar spine protocol. Contrast information: Gadolinium based contrast COMPARISON: None available. FINDINGS: Alignment of the lumbar spine is normal in appearance. Vertebral body heights are maintained. Marrow signal intensity is normal sequences. Previously seen circumscribed mass at L4-L5 vertebral levels ar e not definitively seen on this examination suggesting complete resection. Postsurgical changes are i dentified in the deep soft tissues at L4-L5 vertebral level with laminectomy changes. Abdominal aorta is normal in caliber. No suspicious retroperitoneal abnormality is identified. As portions of the sa irwin appear intact. There is partial visualization of a cystic lesion in the right adnexa measuring a t least 7.2 x 4.9 cm. L3-L4: Disc is normal in configuration. Mild facet arthropathy. No neuroforaminal or spinal canal shari nosis. L4-L5: Disc bulge. Mild to moderate facet arthropathy with ligamentum flavum infolding. Mild bilatera l neuroforaminal stenosis. Laminectomy decompression spinal canal. There is epidural scar tissue iden tified along the left lateral thecal sac mild mass effect in mild mass effect on left lateral recess. L5-S1: Mild disc bulges central disc protrusion. Moderate facet arthropathy. Moderate left neuroforam inal stenosis. No spinal canal stenosis. IMPRESSION: 1. Post surgical changes from resection of L4-L5 levels schwannoma. No evidence for recurrent or resi dual disease. 2. There is cystic lesion in the right adnexa measuring at least 7.2 cm. Further catheterization with pelvic ultrasound or pelvic MRI with and without contrast would be of benefit. Gynecologic consultat ion may be of benefit. Electronically signed by: Michelle Porter MD (08/08/2020 3:29 PM) [id number]
== END ==
LOC: KCIC MRI 13:45
PROVIDERS: ATTEND Neurological Surgery
DX: D36.17 Benign neoplasm of peripheral nerves and autonomic nervous system of trunk, unspecified (principal)
CPT/HCPCS: 72158; A9575